=== PATIENT | female | born 1955 | race African-American/Black ===

== ENCOUNTER → 2016-11-26 | Outpatient (CLI) | payer OTHER ==
[2015-11-04 06:33] VITALS: BP 114/69
[~2016-11-26] MED LIST: MULT1CAP15
[2016-11-26 07:39] LABS: BASO # 0.1 x10^3/uL (0.0-0.2); BASO % 1 % (0-3); EOS % 1 % (0-3); HEMATOCRIT 41.5 % (36.0-47.0); HEMOGLOBIN 13.7 g/dL (12.0-15.5); LYMPH % 51 % (24-48); MEAN CORPUSCULAR HEMOGLOBIN 30 pg (25-35); MEAN CORPUSCULAR HGB CONC 33 g/dL (31-37); MEAN CORPUSCULAR VOLUME 91 fL (79-100); MONO % 8 % (0-9); NEUT % 39 % (31-73); PLATELET COUNT 493 x10^3/uL (140-400); RED BLOOD COUNT 4.56 x10^6/uL (3.50-5.40); RED CELL DISTRIBUTION WIDTH 14.3 % (11.5-14.5)
[2016-11-26 07:59] LABS: ALBUMIN 3.7 g/dL (3.4-5.0); CALCIUM 9.5 mg/dL (8.5-10.1); CHOLESTEROL/HDL RATIO 2.4; CREATININE 0.7 mg/dL (0.6-1.0); GFR 103.3; POTASSIUM 3.7 mmol/L (3.5-5.1); TOTAL BILIRUBIN 0.2 mg/dL (0.2-1.0); TOTAL PROTEIN 7.5 g/dL (6.4-8.2)
--- NOTE | 2016-11-26 09:25 | RAD ---
Indication chronic neck pain. AP oblique lateral and odontoid views were obtained. The patient is not optimally positioned on the lateral view. There is slight wedging of C5 and C6 likely incidental. Significant disc space narrowing is not seen. There is no significant bony foraminal encroachment seen on the oblique views. No acute finding is apparent. The prevertebral soft tissues appear unremarkable. IMPRESSION: Suboptimal lateral view. No significant finding seen on plain films of the cervical spine
== END | disposition home or self-care (01) ==
LOC: LAB 07:04
PROVIDERS: ATTEND Family Medicine
DX: M25.50 Pain in unspecified joint (principal); R53.83 Other fatigue
CPT/HCPCS: 36415; 72050; 80053; 80061; 82306; 82607; 84443; 84550; 85027

== ENCOUNTER 2017-03-26 10:21 | Emergency (ER) | payer OTHER ==
[~2017-03-26] VITALS: Ht 149.9 cm; Wt 59.0 kg
[2017-03-26] MEDS ORDERED: HYDROcodone/APAP 5/325MG 1 TAB TABLET PO ONE (11:00)
--- NOTE | 2017-03-26 11:21 | RAD ---
CT head without contrast History: Headache for 2 weeks. Comparison: None. Procedure: Axial images are obtained of the head from the skull base through the vertex without IV contrast. Findings: The ventricles and sulci are normal for the patient's age. No mass-effect, intracranial mass, midline shift, hemorrhage or obvious acute infarction is identified. Basilar cisterns are patent. Bone windows demonstrate no significant calvarial abnormality. The visualized paranasal sinuses appear clear. Impression: 1. No acute intracranial process. PQRS Compliance Statement: One or more of the following individualized dose reduction techniques were utilized for this examination: 1. Automated exposure control 2. Adjustment of the mA and/or kV according to patient size 3. Use of iterative reconstruction technique
[2017-03-26 11:39] VITALS: BP 124/68
[2017-03-26] MEDS ORDERED: TRAM50TA PO (11:59)
[2017-03-26] MEDS ORDERED: AMOX1TAB61 PO ×2 (11:59→12:01)
--- NOTE | 2017-03-26 11:59 | PHYS DOC ---
Past Medical History Past Medical History: Bronchitis Past Surgical History: Cholecystectomy, , Tubal ligation Alcohol Use: Occasionally Drug Use: None Adult General Chief Complaint Chief Complaint: HEADACHE HPI HPI Patient is a 61 year old female presents to the ED complaining of headache 2 days. Describes the pain as sharp, rates the pain as 8/10. Associated symptoms include nasal congestion. Improves with Motrin at home. Denies worse headache of life, vision changes, nausea/vomiting, trauma, chest pain, shortness of breath, neck pain or photophobia. Review of Systems Review of Systems Constitutional: Denies fever or chills [] Eyes: Denies change in visual acuity, redness, or eye pain [] HENT: Denies nasal congestion or sore throat [] Respiratory: Denies cough or shortness of breath [] Cardiovascular: No additional information not addressed in HPI [] GI: Denies abdominal pain, nausea, vomiting, bloody stools or diarrhea [] : Denies dysuria or hematuria [] Musculoskeletal: Denies back pain or joint pain [] Integument: Denies rash or skin lesions [] Neurologic: Complains of headache. Denies focal weakness or sensory changes [] Endocrine: Denies polyuria or polydipsia [] Current Medications Current Medications Current Medications Medications (Trade) Dose Ordered Sig/Sourav Start Time Stop Time Status Last Admin Dose Admin Acetaminophen/ Hydrocodone Bitart (Lortab 5/325) 1 tab 1X ONCE 03/26/17 11:00 03/26/17 11:01 DC 03/26/17 11:00 1 TAB Allergies Allergies Allergies Coded Allergies Type Severity Reaction Last Updated Verified No Known Drug Allergies 05/30/13 No Physical Exam Physical Exam Constitutional: Well developed, well nourished, no acute distress, non-toxic appearance. [] HENT: Normocephalic, atraumatic, bilateral external ears normal, oropharynx moist, no oral exudates, nose normal. MILD LEFT FRONTAL SINUS TENDERNESS. PRESSURE INCREASES WITH HEAD BENT FORWARD. [] Eyes: PERRLA, EOMI, conjunctiva normal, no discharge. [] Neck: Normal range of motion, no tenderness, supple, no stridor. [] Cardiovascular:Heart rate regular rhythm, no murmur [] Lungs & Thorax: Bilateral breath sounds clear to auscultation [] Abdomen: Bowel sounds normal, soft, no tenderness, no masses, no pulsatile masses. [] Skin: Warm, dry, no erythema, no rash. [] Back: No tenderness, no CVA tenderness. [] Extremities: No tenderness, no cyanosis, no clubbing, ROM intact, no edema. [] Neurologic: Alert and oriented X 3, normal motor function, normal sensory function, no focal deficits noted. [] Psychologic: Affect normal, judgement normal, mood normal. [] Current Patient Data Vital Signs Vital Signs Date Time Temp Pulse Resp B/P (MAP) Pulse Ox O2 Delivery O2 Flow Rate FiO2 03/26/17 11:39 67 18 124/68 (86) 97 Room Air 03/26/17 10:40 97.6 97.6 EKG EKG [] Radiology/Procedures Radiology/Procedures PROCEDURE: CT HEAD WO CONTRAST CT head without contrast History: Headache for 2 weeks. Comparison: None. Procedure: Axial images are obtained of the head from the skull base through the vertex without IV contrast. Findings: The ventricles and sulci are normal for the patient's age. No mass-effect, intracranial mass, midline shift, hemorrhage or obvious acute infarction is identified. Basilar cisterns are patent. Bone windows demonstrate no significant calvarial abnormality. The visualized paranasal sinuses appear clear. Impression: 1. No acute intracranial process. PQRS Compliance Statement: One or more of the following individualized dose reduction techniques were utilized for this examination: 1. Automated exposure control 2. Adjustment of the mA and/or kV according to patient size 3. Use of iterative reconstruction technique [] Course & Med Decision Making Course & Med Decision Making Pertinent Labs and Imaging studies reviewed. (See chart for details) []Discussed imaging findings with patient. Patient's headache resolved. No focal neural deficits. Left frontal maxillary sinus tenderness. WILL treat for sinusitis. Patient prescribed tramadol and Augmentin. Discussed follow-up with PCP in one to 2 days. Provided contact information/education. Discussed reasons to return to the ED. Patient understands and agrees with plan. Dragon Disclaimer Dragon Disclaimer This electronic medical record was generated, in whole or in part, using a voice recognition dictation system. Departure Departure Impression: Primary Impression: Sinusitis Additional Impression: Headache Disposition: 01 HOME, SELF-CARE Condition: IMPROVED Referrals: Elizabeth BUCHANAN MD (PCP) Patient Instructions: Sinusitis Scripts Amoxicillin/Potassium Clav (AUGMENTIN 875-125 TABLET) 1 Each Tablet 1 TAB PO BID, #28 TAB Prov: LEO MESSINA 03/26/17 Tramadol Hcl (TRAMADOL HCL) 50 Mg Tablet 1 TAB PO BID, #10 TAB Prov: LEO MESSINA 03/26/17 Problem Qualifiers LEO MESSINA Mar 26, 2017 11:59
== END 2017-03-26 12:12 | disposition home or self-care (01) ==
LOC: ER 10:21
DX: J32.0 Chronic maxillary sinusitis (principal); J32.1 Chronic frontal sinusitis
CPT/HCPCS: 70450; 99284-25

== ENCOUNTER 2018-02-17 07:11 | Emergency (ER) | payer OTHER ==
[~2018-02-17] VITALS: Ht 149.9 cm; Wt 49.9 kg
[~2018-02-17 07:11] MED LIST changes: +AMOX1TAB61 PO; +TRAM50TA PO
--- NOTE | 2018-02-17 08:01 | EKG ---
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
[2018-02-17] MEDS: IPRATRPIUM/ALBUTEROL 0.5/2.5MG 3 ML NEBU. NEB ONE (08:05)
--- NOTE | 2018-02-17 08:53 | RAD ---
AP and Lateral Views of the Chest 02/17/2018 8:22 AM Indication: Persistent cough X4 days. Comparison: Chest radiograph February 17, 2014. Findings: There is no focal consolidation or infiltrate identified. Heart size is normal. Calcified lymph node in the right paratracheal region noted. There is no evidence of pneumothorax or pleural effusion. No acute osseous abnormalities are identified. Impression: No evidence of acute cardiopulmonary process. Electronically signed by: Donald Spain MD (02/17/2018 8:50 AM) [id number]
[2018-02-17 09:03] LABS: BASO # 0.1 x10^3/uL (0.0-0.2); BASO % 1 % (0-3); EOS # 0.3 x10^3/uL (0.0-0.7); EOS % 4 % (0-3); HEMATOCRIT 41.4 % (36.0-47.0); HEMOGLOBIN 13.7 g/dL (12.0-15.5); LYMPH # 2.7 x10^3/uL (1.0-4.8); LYMPH % 44 % (24-48); MEAN CORPUSCULAR HEMOGLOBIN 29 pg (25-35); MEAN CORPUSCULAR HGB CONC 33 g/dL (31-37); MEAN CORPUSCULAR VOLUME 88 fL (79-100); MONO # 0.6 x10^3/uL (0.0-1.1); MONO % 9 % (0-9); NEUT # 2.5 x10^3uL (1.8-7.7); NEUT % 41 % (31-73); PLATELET COUNT 466 x10^3/uL (140-400); RED BLOOD COUNT 4.72 x10^6/uL (3.50-5.40); WHITE BLOOD COUNT 6.1 x10^3/uL (4.0-11.0)
[2018-02-17 09:11] LABS: CALCIUM 9.2 mg/dL (8.5-10.1); CREATININE 0.6 mg/dL (0.6-1.0); POTASSIUM 3.9 mmol/L (3.5-5.1)
[2018-02-17 09:18] LABS: ALBUMIN 3.6 g/dL (3.4-5.0); TOTAL BILIRUBIN 0.3 mg/dL (0.2-1.0); TOTAL PROTEIN 7.1 g/dL (6.4-8.2)
[2018-02-17 11:07] VITALS: BP 133/68
--- NOTE | 2018-02-17 16:11 | PHYS DOC ---
Past Medical History Past Medical History: Bronchitis Past Surgical History: Cholecystectomy, , Tubal ligation Additional Information: Pack a day Alcohol Use: Occasionally Drug Use: None Adult General Chief Complaint Chief Complaint: CHEST WALL PAIN HPI HPI Patient is a 62-year-old female who presents with complaint of productive cough small amount of sputum for the last few days. She indicates that she has been having some discomfort in her chest as well as her mid thoracic area associated with the cough. She rates that pain is 3 out of 10. She denies any nausea, vomiting or diaphoresis. She indicates that her symptoms are worsened with coughing and with exertion. Patient also denies fever. She states that nothing is improving her symptoms. Review of Systems Review of Systems Constitutional: Denies fever or chills [] Respiratory: Complains of cough and mild exertional shortness of breath[] Cardiovascular: Complains of right-sided chest discomfort[] GI: Denies abdominal pain, nausea, vomiting or diarrhea [] Musculoskeletal: Complains of midthoracic back pain[] Integument: Denies rash or skin lesions [] All other systems were reviewed and found to be within normal limits, except as documented in this note. Current Medications Current Medications Current Medications Medications (Trade) Dose Ordered Sig/Sourav Start Time Stop Time Status Last Admin Dose Admin Albuterol/ Ipratropium (Duoneb) 3 ml 1X ONCE 02/17/18 08:15 02/17/18 08:16 DC 02/17/18 08:05 3 ML Allergies Allergies Allergies Coded Allergies Type Severity Reaction Last Updated Verified No Known Drug Allergies 05/30/13 No Physical Exam Physical Exam Constitutional: Well developed, well nourished, no acute distress, non-toxic appearance. [] HENT: Normocephalic, atraumatic, bilateral external ears normal, oropharynx moist, no oral exudates, nose normal. [] Eyes: PERRLA, EOMI, conjunctiva normal, no discharge. [] Neck: Normal range of motion, no tenderness, supple, no stridor. [] Cardiovascular:Heart rate regular rhythm [] Lungs & Thorax: There are fine rhonchi noted in the lung bases bilaterally[] Abdomen: Bowel sounds normal, soft, no tenderness. [] Skin: Warm, dry, no erythema, no rash. [] Extremities: No tenderness, no cyanosis, no clubbing, ROM intact, no edema. [] Neurologic: Alert and oriented X 3, normal motor function, normal sensory function, no focal deficits noted. [] Current Patient Data Vital Signs Vital Signs Date Time Temp Pulse Resp B/P (MAP) Pulse Ox O2 Delivery O2 Flow Rate FiO2 02/17/18 11:07 65 20 133/68 (89) 99 Room Air 02/17/18 07:20 97.9 97.9 Lab Values Laboratory Tests Test 02/17/18 08:45 White Blood Count 6.1 x10^3/uL (4.0-11.0) Red Blood Count 4.72 x10^6/uL (3.50-5.40) Hemoglobin 13.7 g/dL (12.0-15.5) Hematocrit 41.4 % (36.0-47.0) Mean Corpuscular Volume 88 fL (79-100) Mean Corpuscular Hemoglobin 29 pg (25-35) Mean Corpuscular Hemoglobin Concent 33 g/dL (31-37) Red Cell Distribution Width 14.0 % (11.5-14.5) Platelet Count 466 x10^3/uL (140-400) H Neutrophils (%) (Auto) 41 % (31-73) Lymphocytes (%) (Auto) 44 % (24-48) Monocytes (%) (Auto) 9 % (0-9) Eosinophils (%) (Auto) 4 % (0-3) H Basophils (%) (Auto) 1 % (0-3) Neutrophils # (Auto) 2.5 x10^3uL (1.8-7.7) Lymphocytes # (Auto) 2.7 x10^3/uL (1.0-4.8) Monocytes # (Auto) 0.6 x10^3/uL (0.0-1.1) Eosinophils # (Auto) 0.3 x10^3/uL (0.0-0.7) Basophils # (Auto) 0.1 x10^3/uL (0.0-0.2) D-Dimer (Antonella) 0.39 ug/mlFEU (0.00-0.50) Sodium Level 144 mmol/L (136-145) Potassium Level 3.9 mmol/L (3.5-5.1) Chloride Level 107 mmol/L (98-107) Carbon Dioxide Level 30 mmol/L (21-32) Anion Gap 7 (6-14) Blood Urea Nitrogen 7 mg/dL (7-20) Creatinine 0.6 mg/dL (0.6-1.0) Estimated GFR (Cockcroft-Gault) 123.0 BUN/Creatinine Ratio 12 (6-20) Glucose Level 106 mg/dL (70-99) H Calcium Level 9.2 mg/dL (8.5-10.1) Total Bilirubin 0.3 mg/dL (0.2-1.0) Aspartate Amino Transferase (AST) 16 U/L (15-37) Alanine Aminotransferase (ALT) 28 U/L (14-59) Alkaline Phosphatase 129 U/L (46-116) H Troponin I Quantitative < 0.017 ng/mL (0.000-0.055) UA-Oqs-P-Type Natriuretic Peptide 119 pg/mL (0-124) Total Protein 7.1 g/dL (6.4-8.2) Albumin 3.6 g/dL (3.4-5.0) Albumin/Globulin Ratio 1.0 (1.0-1.7) Laboratory Tests 02/17/18 08:45 Laboratory Tests 02/17/18 08:45 EKG EKG [] Interpretation Time: EKG demonstrates normal sinus rhythm with rate of 63. No ST segment abnormalities are noted. Radiology/Procedures Radiology/Procedures [] Impressions: Chest x-ray demonstrates no acute process. Course & Med Decision Making Course & Med Decision Making Pertinent Labs and Imaging studies reviewed. (See chart for details) [] Dragon Disclaimer Dragon Disclaimer This electronic medical record was generated, in whole or in part, using a voice recognition dictation system. Departure Departure Impression: Primary Impression: Acute bronchitis Disposition: 01 HOME, SELF-CARE Condition: STABLE Referrals: Elizabeth BUCHANAN MD (PCP) Patient Instructions: Acute Bronchitis Additional Instructions: Take prescribed medications as directed and follow-up with your primary care provider in the next few days. Problem Qualifiers Primary Impression: Acute bronchitis Bronchitis organism: unspecified organism Qualified Codes: J20.9 - Acute bronchitis, unspecified SHELLEY PRESTON Jr. DO Feb 17, 2018 16:11
== END 2018-02-17 11:20 | disposition home or self-care (01) ==
LOC: ER 07:11
DX: J20.9 Acute bronchitis, unspecified (principal); M54.6 Pain in thoracic spine; F17.200 Nicotine dependence, unspecified, uncomplicated; Z90.49 Acquired absence of other specified parts of digestive tract; Z98.890 Other specified postprocedural states; Z90.89 Acquired absence of other organs
CPT/HCPCS: 36415; 71046; 80053; 83880; 84484; 85025; 85379; 93005; 94640; 99285; J7620

== ENCOUNTER → 2018-04-15 | Outpatient (CLI) | payer OTHER ==
--- NOTE | 2018-04-15 07:52 | RAD ---
CHEST PA LATERAL Clinical indications: BRONCHITIS COMPARISON: February 17, 2018. Findings: No acute lung infiltrate or pleural effusion or pulmonary edema or lung mass or pneumothorax is seen. The heart size, pulmonary vasculature, mediastinum and both teresa are unremarkable. Small compression deformity of T12 is unchanged. Impression: No acute radiographic abnormality is seen. Electronically signed by: Evans Bhatia MD (04/15/2018 7:49 AM) [facility]
--- NOTE | 2018-04-15 15:39 | RAD ---
DATE: April 15, 2015 EXAM: MAMMO ESTRELLA SCREENING BILATERAL HISTORY: Screening study. COMPARISON: None. Baseline examination. This study was interpreted with the benefit of Computerized Aided Detection (CAD). 2-D digital mammographic views of both breasts were performed in the CC and MLO projections. 3-D digital tomosynthesis images of both breasts were performed in the CC and MLO projections and reviewed on a computer workstation. FINDINGS: Breast Density: HETERO The breast parenchyma is heterogenously dense, which could reduce sensitivity of mammography. Breast parenchyma level C.. There are no dominant suspicious masses, suspicious microcalcifications or evidence of architectural distortion. IMPRESSION: No mammographic indicators for malignancy. BI-RADS CATEGORY: 1 NEGATIVE RECOMMENDED FOLLOW-UP: 12M 12 MONTH FOLLOW-UP PQRS compliance statement: Patient information was entered into a reminder system with a target due date April 16, 2019 for the next mammogram. Mammography is a sensitive method for finding small breast cancers, but it does not detect them all and is not a substitute for careful clinical examination. A negative mammogram does not negate a clinically suspicious finding and should not result in delay in biopsying a clinically suspicious abnormality. "Our facility is accredited by the [employer] Mammography Program." The patient's breast density may affect the ability of mammography to detect breast cancer. There are 4 categories of breast density, A, B, C and D. Breast density A means that most of the breast tissue is replaced with adipose tissue and therefore is not dense. Breast density B means that the breast tissue is mildly dense and scattered. Breast density C means that the breast tissue is heterogeneously dense. Breast density D means that the breast tissue is very dense. Breast densities especially C and D may decrease the sensitivity of mammography to detect breast cancer. Therefore, the patient may benefit from 3-D breast mammography (3D breast tomography) as a part of their screening mammogram. Insurance may or may not pay for this additional imaging. The patient's breast density based on today's mammogram is category C.
== END | disposition home or self-care (01) ==
LOC: RAD 07:13
PROVIDERS: ATTEND Family Medicine
DX: Z12.31 Encounter for screening mammogram for malignant neoplasm of breast (principal); J40 Bronchitis, not specified as acute or chronic; F17.200 Nicotine dependence, unspecified, uncomplicated
CPT/HCPCS: 71046; 77063; 77067

== ENCOUNTER → 2018-05-04 | Outpatient (CLI) | payer OTHER ==
--- NOTE | 2018-05-04 11:14 | KCIC ---
Bone mineral density study dated 05/04/2018. Indication: Postmenopausal screening. Findings: Lower lumbar spine: BMD (g/cm2): Total L1-L4.......... 0.810. . T-Score: Total L1-L4.................... -2.2. Z-Score: Total L1-L4 ................... -1.4. Left Hip: BMD (g/cm2): Total .......... 0.632. . T-Score: Total .................... -2.5. Z-Score: Total ................... -1.7. World Health Organization criteria for BMD interpretation classify patients as Normal (T-score at or above -1.0), Osteopenic (T-score between -1.0 and -2.5), or Osteoporotic (T-score at or below -2.5). Impression: 1. Bone mineral density values of the left femur correlate with osteoporosis. 2. Density values of the lumbar spine are within the range of osteopenia. Electronically signed by: Jerrod Fitch MD (05/04/2018 11:10 AM) [facility]
== END | disposition home or self-care (01) ==
LOC: KCIC DEXA 10:31
PROVIDERS: ATTEND Family Medicine
DX: Z13.820 Encounter for screening for osteoporosis (principal); Z78.0 Asymptomatic menopausal state
CPT/HCPCS: 77080

== ENCOUNTER 2019-02-22 17:31 | Emergency (ER) | payer OTHER ==
[~2019-02-22] VITALS: Ht 149.9 cm; Wt 59.0 kg
[~2019-02-22 17:31] MED LIST changes: +ALEN70TA3 PO; +CALC1TAB75 PO; +CEPH-264 PO; +Pantoprazole PO
[2019-02-22] MEDS ORDERED: IV NORMAL SALINE 1000ML BAG 1,000 ML IV ONE (18:00)
[2019-02-22] MEDS ORDERED: ONDANSETRON PF 4 MG/2 ML VIAL. IV ONE (18:00)
[2019-02-22] MEDS ORDERED: fentaNYL PF VIAL 100 MCG/2 ML VIAL IV ONE (18:00)
[2019-02-22 18:27] LABS: BASO % 0 % (0-3); EOS # 0.2 x10^3/uL (0.0-0.7); EOS % 2 % (0-3); HEMATOCRIT 42.2 % (36.0-47.0); HEMOGLOBIN 14.3 g/dL (12.0-15.5); LYMPH # 4.2 x10^3/uL (1.0-4.8); LYMPH % 46 % (24-48); MEAN CORPUSCULAR HEMOGLOBIN 30 pg (25-35); MEAN CORPUSCULAR HGB CONC 34 g/dL (31-37); MEAN CORPUSCULAR VOLUME 90 fL (79-100); MONO # 0.6 x10^3/uL (0.0-1.1); MONO % 7 % (0-9); NEUT # 4.2 x10^3/uL (1.8-7.7); NEUT % 46 % (31-73); PLATELET COUNT 486 x10^3/uL (140-400); RED BLOOD COUNT 4.71 x10^6/uL (3.50-5.40); RED CELL DISTRIBUTION WIDTH 14.4 % (11.5-14.5); WHITE BLOOD COUNT 9.3 x10^3/uL (4.0-11.0)
--- NOTE | 2019-02-22 18:33 | PHYS DOC ---
Past Medical History Past Medical History: Pancreatitis Additional Past Medical Histor: H. Pylori, gastritis, Vitamin D deficiency Past Surgical History: Cholecystectomy, , Tubal ligation Smokin Pack Per Day Additional Information: smokes 1 pack/day Alcohol Use: Rarely Drug Use: None Adult General Chief Complaint Chief Complaint: ABDOMINAL PAIN HPI HPI Patient is a 63 year old AA female who presents to the ER with complaints of epigastric abdominal pain for the last 2 weeks. Pt states that the pain increases when she takes a deep breath today. She reports that the pain began after eating fried foods. She currently rates the pain a 4/10 on the pain scale, the pain increases to 10/10 if she takes a deep breath, she denies any allev iating factors. ROS PT denies any fever, cough, shortness of breath, chest pain, palpitations, [place], vomiting, or diarrhea. She denies any back pain, dysuria, hematuria, or increased urinary frequency. She denies any weakness or headache. All other ROS is neg unless otherwise noted in HPI. Review of Systems Review of Systems See Above Current Medications Current Medications Current Medications Medications (Trade) Dose Ordered Sig/Sourav Start Time Stop Time Status Last Admin Dose Admin Fentanyl Citrate (Fentanyl 2ml Vial) 50 mcg 1X ONCE 02/22/19 18:00 02/22/19 18:02 DC 02/22/19 18:56 50 MCG Multi-Ingredient Mouthwash/Gargle (Gi Cocktail) 20 ml 1X ONCE 02/22/19 19:45 02/22/19 19:46 DC 02/22/19 19:54 20 ML Ondansetron HCl (Zofran) 4 mg 1X ONCE 02/22/19 18:00 02/22/19 18:02 DC 02/22/19 18:56 4 MG Sodium Chloride 1,000 ml @ 1,000 mls/hr 1X ONCE 02/22/19 18:00 02/22/19 18:59 DC 02/22/19 18:56 1,000 MLS/HR Allergies Allergies Allergies Coded Allergies Type Severity Reaction Last Updated Verified No Known Drug Allergies 05/30/13 No Physical Exam Physical Exam See Above Constitutional: Well developed, well nourished, no acute distress, non-toxic appearance. [] HENT: Normocephalic, atraumatic, bilateral external ears normal, oropharynx moist, no oral exudates, nose normal. [] Eyes: PERRLA, EOMI, conjunctiva normal, no discharge. [] Neck: Normal range of motion, no stridor. [] Cardiovascular:Heart rate regular rhythm, no murmur [] Lungs & Thorax: Bilateral breath sounds clear to auscultation, no retractions [] Abdomen: Bowel sounds normal, soft, epigastric tenderness to palpation, no rebound tenderness, no guarding, no masses, no pulsatile masses. [] Skin: Warm, dry, no erythema, no rash. [] Back: No CVA tenderness. [] Extremities: No cyanosis, no clubbing, ROM intact, no edema. [] Neurologic: Alert and oriented X 3, no focal deficits noted. [] Psychologic: Affect normal, judgement normal, mood normal. [] Current Patient Data Vital Signs Vital Signs Date Time Temp Pulse Resp B/P (MAP) Pulse Ox O2 Delivery O2 Flow Rate FiO2 02/22/19 21:00 50 20 149/66 (93) 98 Room Air 02/22/19 17:58 97.9 97.9 See Above Lab Values Laboratory Tests Test 02/22/19 17:45 02/22/19 18:13 Urine Collection Type Unknown Urine Color Yellow Urine Clarity Clear Urine pH 6.5 Urine Specific [place] 1.020 Urine Protein Negative mg/dL (NEG-TRACE) Urine Glucose (UA) Negative mg/dL (NEG) Urine Ketones (Stick) Negative mg/dL (NEG) Urine Blood Negative (NEG) Urine Nitrite Negative (NEG) Urine Bilirubin Negative (NEG) Urine Urobilinogen Dipstick 0.2 mg/dL (0.2 mg/dL) Urine Leukocyte Esterase Moderate (NEG) Urine RBC 0 /HPF (0-2) Urine WBC 5-10 /HPF (0-4) Urine Squamous Epithelial Cells Many /LPF Urine Bacteria Many /HPF (0-FEW) Urine Mucus Mod /LPF White Blood Count 9.3 x10^3/uL (4.0-11.0) Red Blood Count 4.71 x10^6/uL (3.50-5.40) Hemoglobin 14.3 g/dL (12.0-15.5) Hematocrit 42.2 % (36.0-47.0) Mean Corpuscular Volume 90 fL (79-100) Mean Corpuscular Hemoglobin 30 pg (25-35) Mean Corpuscular Hemoglobin Concent 34 g/dL (31-37) Red Cell Distribution Width 14.4 % (11.5-14.5) Platelet Count 486 x10^3/uL (140-400) H Neutrophils (%) (Auto) 46 % (31-73) Lymphocytes (%) (Auto) 46 % (24-48) Monocytes (%) (Auto) 7 % (0-9) Eosinophils (%) (Auto) 2 % (0-3) Basophils (%) (Auto) 0 % (0-3) Neutrophils # (Auto) 4.2 x10^3/uL (1.8-7.7) Lymphocytes # (Auto) 4.2 x10^3/uL (1.0-4.8) Monocytes # (Auto) 0.6 x10^3/uL (0.0-1.1) Eosinophils # (Auto) 0.2 x10^3/uL (0.0-0.7) Basophils # (Auto) 0.0 x10^3/uL (0.0-0.2) Sodium Level 144 mmol/L (136-145) Potassium Level 4.1 mmol/L (3.5-5.1) Chloride Level 104 mmol/L (98-107) Carbon Dioxide Level 30 mmol/L (21-32) Anion Gap 10 (6-14) Blood Urea Nitrogen 10 mg/dL (7-20) Creatinine 0.8 mg/dL (0.6-1.0) Estimated GFR (Cockcroft-Gault) 87.9 BUN/Creatinine Ratio 13 (6-20) Glucose Level 111 mg/dL (70-99) H Calcium Level 9.8 mg/dL (8.5-10.1) Magnesium Level 2.1 mg/dL (1.8-2.4) Total Bilirubin 0.2 mg/dL (0.2-1.0) Aspartate Amino Transferase (AST) 15 U/L (15-37) Alanine Aminotransferase (ALT) 21 U/L (14-59) Alkaline Phosphatase 118 U/L (46-116) H Creatine Kinase 79 U/L (26-192) Creatine Kinase MB (Mass) 0.5 ng/mL (0.0-3.6) Creatine Kinase MB Relative Index 0.6 % (0-4) Troponin I Quantitative < 0.017 ng/mL (0.000-0.055) Total Protein 7.6 g/dL (6.4-8.2) Albumin 4.0 g/dL (3.4-5.0) Albumin/Globulin Ratio 1.1 (1.0-1.7) Lipase 412 U/L (73-393) H Laboratory Tests 02/22/19 18:13 Laboratory Tests 02/22/19 18:13 EKG EKG 1758- SR rate 54, no STEMI read by Dr. Munson[] Course & Med Decision Making Course & Med Decision Making Pertinent Labs and Imaging studies reviewed. (See chart for details) dx: gastritis CBC is unremarkable, CMP reveals glucose of 111, alkaline phosphatase of 118, lipase is 412, troponin is negative less than 0.017, the UA is likely contaminated, as patient is asymptomatic. No imaging was performed as patient's only complaint was epigastric abdominal pain improved after medications, patient had already had her gallbladder removed. PT was given 1L NS, 4 mg zofran IV, and 50 mcg of fentanyl in the ER, reports some relief of pain. A GI cocktail was given to pt. Pt reports feeling better after this medication. States she would like to go home. Prescription was written for omeprazole 20 mg twice a day. 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 She is encouraged to continue not drinking alcoholic beverages. Dragon Disclaimer Dragon Disclaimer This electronic medical record was generated, in whole or in part, using a voice recognition dictation system. Departure Departure Impression: Primary Impression: Gastritis Disposition: 01 HOME, SELF-CARE Condition: STABLE Referrals: Elizabeth PALACIOS MD (PCP) SAMINA LEON MD Patient Instructions: Gastritis, Adult, [id number] Additional Instructions: Fill the prescription and use as directed. Follow up with Dr. Palacios or Dr. Leon for further treatment of your gastritis, return to the ER if symptoms worsen. Scripts Omeprazole (OMEPRAZOLE) 20 Mg Capsule. 1 CAP PO BID for 30 Days, #60 CAP 0 Refills Prov: RUPERTO OCASIO Taryn MCKINNON 02/22/19 Problem Qualifiers Primary Impression: Gastritis Gastritis type: unspecified gastritis Chronicity: unspecified Gastritis bleeding: without bleeding Qualified Codes: K29.70 - Gastritis, unspecified, without bleeding RUPERTO OCASIO DOOR PERSON Feb 22, 2019 18:33
[2019-02-22 18:47] LABS: CALCIUM 9.8 mg/dL (8.5-10.1); CREATININE 0.8 mg/dL (0.6-1.0); GFR 87.9; POTASSIUM 4.1 mmol/L (3.5-5.1)
[2019-02-22 18:53] LABS: ALBUMIN/GLOBULIN RATIO 1.1 (1.0-1.7); MAGNESIUM 2.1 mg/dL (1.8-2.4); TOTAL BILIRUBIN 0.2 mg/dL (0.2-1.0); TOTAL PROTEIN 7.6 g/dL (6.4-8.2)
[2019-02-22 19:01] LABS: BILIRUBIN,URINE NEGATIVE (NEG); CLARITY,URINE CLEAR; COLOR,URINE YELLOW; NITRITE,URINE NEGATIVE (NEG); PH,URINE 6.5; PROTEIN,URINE NEGATIVE (NEG-TRACE); UROBILINOGEN,URINE 0.2 mg/dL (0.2 mg/dL)
[2019-02-22 19:06] LABS: BACTERIA,URINE MANY /HPF (0-FEW); RBC,URINE 0 /HPF (0-2); SQUAMOUS EPITHELIAL CELL,UR MANY /LPF
[2019-02-22] MEDS ORDERED: LIDO:MAALOX 1:1 20 ML SINGLE DOSE. SWSW ONE (19:45)
[2019-02-22 21:00] VITALS: BP 149/66
[2019-02-22] MEDS ORDERED: OMEP20CA10 PO (21:05)
--- NOTE | 2019-02-23 05:29 | EKG ---
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
[2019-03-01] MEDS ORDERED: LACT1CAP19 PO (11:56)
[2019-03-01] MEDS ORDERED: POLY17PO28 PO (11:56)
[2019-03-01] MEDS ORDERED: AMOX1TAB61 PO (11:56)
[2019-03-01] MEDS ORDERED: OXYC1TAB15 PO (11:56)
== END 2019-02-22 21:13 | disposition home or self-care (01) ==
LOC: ER 17:31
DX: K29.70 Gastritis, unspecified, without bleeding (principal); F17.200 Nicotine dependence, unspecified, uncomplicated; Z90.49 Acquired absence of other specified parts of digestive tract; Z98.890 Other specified postprocedural states; Z98.51 Tubal ligation status
CPT/HCPCS: 36415; 80053; 81001; 82553; 83690; 83735; 84484; 85025; 87086; 93005; 96361; 96374; 96375; 99285; J2405; J3010; J7030

== ENCOUNTER 2019-02-26 07:07 | Inpatient (IN) | payer OTHER ==
[~2019-02-26] VITALS: Ht 149.9 cm; Wt 59.0 kg
[~2019-02-26 07:07] MED LIST changes: +OMEP20CA10 PO
[2019-02-26 07:39] LABS: BILIRUBIN,URINE NEGATIVE (NEG); CLARITY,URINE CLOUDY; COLOR,URINE YELLOW; NITRITE,URINE NEGATIVE (NEG); PROTEIN,URINE NEGATIVE (NEG-TRACE); UROBILINOGEN,URINE 0.2 mg/dL (0.2 mg/dL)
[2019-02-26 07:50] LABS: BACTERIA,URINE MANY /HPF (0-FEW); WBC,URINE TNTC /HPF (0-4)
[2019-02-26 08:01] LABS: BASO % 1 % (0-3); EOS # 0.1 x10^3/uL (0.0-0.7); EOS % 2 % (0-3); HEMATOCRIT 40.9 % (36.0-47.0); LYMPH # 3.2 x10^3/uL (1.0-4.8); LYMPH % 47 % (24-48); MEAN CORPUSCULAR HEMOGLOBIN 30 pg (25-35); MEAN CORPUSCULAR HGB CONC 34 g/dL (31-37); MEAN CORPUSCULAR VOLUME 89 fL (79-100); MONO # 0.4 x10^3/uL (0.0-1.1); MONO % 6 % (0-9); NEUT # 3.1 x10^3/uL (1.8-7.7); NEUT % 45 % (31-73); PLATELET COUNT 514 x10^3/uL (140-400); RED BLOOD COUNT 4.61 x10^6/uL (3.50-5.40); RED CELL DISTRIBUTION WIDTH 14.1 % (11.5-14.5); WHITE BLOOD COUNT 6.9 x10^3/uL (4.0-11.0)
[2019-02-26] MEDS ORDERED: LIDO:MAALOX 1:1 20 ML SINGLE DOSE. SWSW ONE (08:15)
[2019-02-26] MEDS ORDERED: cefTRIAXone IV Push 1 GM VIAL. IVP ONE (08:15)
--- NOTE | 2019-02-26 08:16 | PHYS DOC ---
Past Medical History Past Medical History: Pancreatitis Additional Past Medical Histor: H. Pylori, gastritis, Vitamin D deficiency Past Surgical History: Cholecystectomy, , Tubal ligation Alcohol Use: Rarely Drug Use: None Adult General Chief Complaint Chief Complaint: ABDOMINAL PAIN HPI HPI Patient is a 63 year old female presented ER today for evaluation of epigastric this abdominal pain that been going on for about 3 weeks. Patient was seen here on February 22 for the same problem, she was diagnosed with gastritis, she was discharged home with prescription for prilosec 20 mg twice a day. She continues to have abdominal pain despite taking her medication. She denies any fever, no diarrhea, no chest pain, no trouble breathing. She has history of pancreatitis, acid reflux. Patient has history of cholecystectomy in the past. Patient drinks socially. Review of Systems Review of Systems Constitutional: Denies fever or chills [] Eyes: Denies change in visual acuity, redness, or eye pain [] HENT: Denies nasal congestion or sore throat [] Respiratory: Denies cough or shortness of breath [] Cardiovascular: No additional information not addressed in HPI [] GI: POSITIVE FOR abdominal pain, nausea, NO vomiting, bloody stools or diarrhea [] : Denies dysuria or hematuria [] Musculoskeletal: Denies back pain or joint pain [] Integument: Denies rash or skin lesions [] Neurologic: Denies headache, focal weakness or sensory changes [] Endocrine: Denies polyuria or polydipsia [] All other systems were reviewed and found to be within normal limits, except as documented in this note. Current Medications Current Medications Current Medications Medications (Trade) Dose Ordered Sig/Sourav Start Time Stop Time Status Last Admin Dose Admin Ceftriaxone Sodium (Rocephin) 1 gm 1X ONCE 02/26/19 08:15 02/26/19 08:16 DC 02/26/19 08:31 1 GM Fentanyl Citrate (Fentanyl 2ml Vial) 50 mcg 1X ONCE 02/26/19 10:00 02/26/19 10:01 DC 02/26/19 10:10 50 MCG Info (CONTRAST GIVEN -- Rx MONITORING) 1 each PRN DAILY PRN 02/26/19 09:30 02/28/19 09:29 Iohexol (Omnipaque 300 Mg/ml) 75 ml 1X ONCE 02/26/19 09:30 02/26/19 09:31 DC 02/26/19 09:18 75 ML Multi-Ingredient Mouthwash/Gargle (Gi Cocktail) 20 ml 1X ONCE 02/26/19 08:15 02/26/19 08:16 DC 02/26/19 08:31 20 ML Sodium Chloride 1,000 ml @ 1,000 mls/hr 1X ONCE 02/26/19 10:00 02/26/19 10:59 02/26/19 10:12 1,000 MLS/HR Allergies Allergies Allergies Coded Allergies Type Severity Reaction Last Updated Verified No Known Drug Allergies 05/30/13 No Physical Exam Physical Exam Constitutional: Well developed, well nourished, no acute distress, non-toxic appearance. [] HENT: Normocephalic, atraumatic, bilateral external ears normal, oropharynx moist, no oral exudates, nose normal. [] Eyes: PERRLA, EOMI, conjunctiva normal, no discharge. [] Neck: Normal range of motion, no tenderness, supple, no stridor. [] Cardiovascular:Heart rate regular rhythm, no murmur [] Lungs & Thorax: Bilateral breath sounds clear to auscultation [] Abdomen: Bowel sounds normal, soft, There is tenderness to palpation at EPIGASTRIC AREA, no masses, no pulsatile masses. [] Skin: Warm, dry, no erythema, no rash. [] Back: No tenderness, no CVA tenderness. [] Extremities: No tenderness, no cyanosis, no clubbing, ROM intact, no edema. [] Neurologic: Alert and oriented X 3, normal motor function, normal sensory function, no focal deficits noted. [] Psychologic: Affect normal, judgement normal, mood normal. [] Current Patient Data Vital Signs Vital Signs Date Time Temp Pulse Resp B/P (MAP) Pulse Ox O2 Delivery O2 Flow Rate FiO2 02/26/19 07:34 97.5 74 16 135/74 (94) 97 Room Air 97.5 Lab Values Laboratory Tests Test 02/26/19 07:22 02/26/19 07:38 02/26/19 08:16 Urine Collection Type Unknown Urine Color Yellow Urine Clarity Cloudy Urine pH 5.0 Urine Specific [place] 1.020 Urine Protein Negative mg/dL (NEG-TRACE) Urine Glucose (UA) Negative mg/dL (NEG) Urine Ketones (Stick) Negative mg/dL (NEG) Urine Blood Trace (NEG) Urine Nitrite Negative (NEG) Urine Bilirubin Negative (NEG) Urine Urobilinogen Dipstick 0.2 mg/dL (0.2 mg/dL) Urine Leukocyte Esterase Large (NEG) Urine RBC 1-2 /HPF (0-2) Urine WBC Tntc /HPF (0-4) Urine Bacteria Many /HPF (0-FEW) White Blood Count 6.9 x10^3/uL (4.0-11.0) Red Blood Count 4.61 x10^6/uL (3.50-5.40) Hemoglobin 14.0 g/dL (12.0-15.5) Hematocrit 40.9 % (36.0-47.0) Mean Corpuscular Volume 89 fL (79-100) Mean Corpuscular Hemoglobin 30 pg (25-35) Mean Corpuscular Hemoglobin Concent 34 g/dL (31-37) Red Cell Distribution Width 14.1 % (11.5-14.5) Platelet Count 514 x10^3/uL (140-400) H Neutrophils (%) (Auto) 45 % (31-73) Lymphocytes (%) (Auto) 47 % (24-48) Monocytes (%) (Auto) 6 % (0-9) Eosinophils (%) (Auto) 2 % (0-3) Basophils (%) (Auto) 1 % (0-3) Neutrophils # (Auto) 3.1 x10^3/uL (1.8-7.7) Lymphocytes # (Auto) 3.2 x10^3/uL (1.0-4.8) Monocytes # (Auto) 0.4 x10^3/uL (0.0-1.1) Eosinophils # (Auto) 0.1 x10^3/uL (0.0-0.7) Basophils # (Auto) 0.0 x10^3/uL (0.0-0.2) Sodium Level 145 mmol/L (136-145) Potassium Level 3.6 mmol/L (3.5-5.1) Chloride Level 107 mmol/L (98-107) Carbon Dioxide Level 28 mmol/L (21-32) Anion Gap 10 (6-14) Blood Urea Nitrogen 9 mg/dL (7-20) Creatinine 0.9 mg/dL (0.6-1.0) Estimated GFR (Cockcroft-Gault) 76.8 BUN/Creatinine Ratio 10 (6-20) Glucose Level 101 mg/dL (70-99) H Calcium Level 9.6 mg/dL (8.5-10.1) Total Bilirubin 0.4 mg/dL (0.2-1.0) Aspartate Amino Transferase (AST) 23 U/L (15-37) Alanine Aminotransferase (ALT) 22 U/L (14-59) Alkaline Phosphatase 102 U/L (46-116) Total Protein 7.4 g/dL (6.4-8.2) Albumin 3.6 g/dL (3.4-5.0) Albumin/Globulin Ratio 0.9 (1.0-1.7) L Lipase 407 U/L (73-393) H Laboratory Tests 02/26/19 07:38 Laboratory Tests 02/26/19 08:16 EKG EKG [] Radiology/Procedures Radiology/Procedures [][facility] [address] [place] [address] IMAGING REPORT Signed PATIENT: MILAGROS PALACIOS ACCOUNT: [id number] : 1955 LOCATION: ER AGE: 63 SEX: F EXAM STATUS: REG ER ORD. PHYSICIAN: GREGORIO SMITH DO REASON: abdominal pain, nausea and vomiting for 3 weeks PROCEDURE: CT ABD PELV W/ IV CONTRST ONLY CT ABD PELV W/ IV CONTRST ONLY Indication: Abdominal pain, nausea and vomiting for 3 weeks. History pancreatitis. . Tubal ligation. Exposure: One or more of the following individualized dose reduction techniques were utilized for this examination: 1. Automated exposure control 2. Adjustment of the mA and/or kV according to patient size 3. Use of iterative reconstruction technique. Technique: Intravenous contrast was given. No oral contrast per request. Comparison: July 03, 2018 FINDINGS: Lung bases are clear. The most superior aspect of the dome of the right lobe of liver is not included on the [id number]. Visualized liver appears unremarkable. Spleen unremarkable with calcified granulomata. The pancreatic head again appears mildly enlarged with ill-defined margins and surrounding replacement of fat. The finding is similar to the previous exam. No adrenal mass. Kidneys demonstrate symmetric enhancement without hydronephrosis. There are a couple of small low-density lesions in the left kidney, too small to characterize, but are stable since the previous exam and could represent cysts. No hydronephrosis. Gallbladder is surgically absent. Mild common bile duct dilatation is stable. Aorta mildly calcified without aneurysm. No significant lymph node enlargement. No significant small bowel distention. No evidence of acute colitis. Mild retained stool within the colon. More moderate retained stool in the cecum. The appendix appears within normal limits and unchanged in appearance. No significant ascites or pneumoperitoneum. Uterine calcifications as well as uterine heterogeneity likely due to fibroids Vertebral body height and alignment are intact and stable since prior study IMPRESSION: 1. Pancreatic head again appears abnormal, mildly enlarged with ill-defined margins and adjacent induration. Again, findings could represent pancreatitis, depending on clinical and laboratory correlation. 2. There are couple of small left renal lesions, too small to characterize, but would most commonly represent cysts. Electronically signed by: Jerrod Del Cid MD (02/26/2019 9:46 AM) [id number] DICTATED and SIGNED BY: JERROD DEL CID MD DATE: 02/26/19 0946 Course & Med Decision Making Course & Med Decision Making Pertinent Labs and Imaging studies reviewed. (See chart for details) [] Dragon Disclaimer Dragon Disclaimer This electronic medical record was generated, in whole or in part, using a voice recognition dictation system. Departure Departure Impression: Primary Impression: Acute pancreatitis Disposition: ADMITTED INPATIENT Admitting Physician: Ervin Palacios Condition: STABLE Referrals: Elizabeth PALACIOS MD (PCP) GREGORIO SMITH DO Feb 26, 2019 08:15
[2019-02-26 08:38] LABS: CALCIUM 9.6 mg/dL (8.5-10.1); CREATININE 0.9 mg/dL (0.6-1.0); GFR 76.8; POTASSIUM 3.6 mmol/L (3.5-5.1)
[2019-02-26 08:45] LABS: ALBUMIN 3.6 g/dL (3.4-5.0); ALBUMIN/GLOBULIN RATIO 0.9 (1.0-1.7); TOTAL BILIRUBIN 0.4 mg/dL (0.2-1.0); TOTAL PROTEIN 7.4 g/dL (6.4-8.2)
[2019-02-26] MEDS ORDERED: CONTRAST GIVEN. MC PRN (09:30)
[2019-02-26] MEDS ORDERED: IOHEXOL 300 MG/ML 100ML VIAL. IV ONE (09:30)
--- NOTE | 2019-02-26 09:49 | RAD ---
CT ABD PELV W/ IV CONTRST ONLY Indication: Abdominal pain, nausea and vomiting for 3 weeks. History pancreatitis. . Tubal ligation. Exposure: One or more of the following individualized dose reduction techniques were utilized for this examination: 1. Automated exposure control 2. Adjustment of the mA and/or kV according to patient size 3. Use of iterative reconstruction technique. Technique: Intravenous contrast was given. No oral contrast per request. Comparison: July 03, 2018 FINDINGS: Lung bases are clear. The most superior aspect of the dome of the right lobe of liver is not included on the [id number]. Visualized liver appears unremarkable. Spleen unremarkable with calcified granulomata. The pancreatic head again appears mildly enlarged with ill-defined margins and surrounding replacement of fat. The finding is similar to the previous exam. No adrenal mass. Kidneys demonstrate symmetric enhancement without hydronephrosis. There are a couple of small low-density lesions in the left kidney, too small to characterize, but are stable since the previous exam and could represent cysts. No hydronephrosis. Gallbladder is surgically absent. Mild common bile duct dilatation is stable. Aorta mildly calcified without aneurysm. No significant lymph node enlargement. No significant small bowel distention. No evidence of acute colitis. Mild retained stool within the colon. More moderate retained stool in the cecum. The appendix appears within normal limits and unchanged in appearance. No significant ascites or pneumoperitoneum. Uterine calcifications as well as uterine heterogeneity likely due to fibroids Vertebral body height and alignment are intact and stable since prior study IMPRESSION: 1. Pancreatic head again appears abnormal, mildly enlarged with ill-defined margins and adjacent induration. Again, findings could represent pancreatitis, depending on clinical and laboratory correlation. 2. There are couple of small left renal lesions, too small to characterize, but would most commonly represent cysts. Electronically signed by: Jerrod Del Cid MD (02/26/2019 9:46 AM) [facility]
[2019-02-26] MEDS ORDERED: fentaNYL PF VIAL 100 MCG/2 ML VIAL IV ONE (10:00)
[2019-02-26] MEDS ORDERED: IV NORMAL SALINE 1000ML BAG 1,000 ML IV ONE (10:00)
[2019-02-26] MEDS ORDERED: ONDANSETRON PF 4 MG/2 ML VIAL. IV PRN (10:30)
[2019-02-26] MEDS: fentaNYL PF VIAL 100 MCG/2 ML VIAL IV PRN ×5 (12:38→23:53)
[2019-02-26] MEDS ORDERED: MULTIVIT INFUSN,ADULT 4,VIT K 10 ML, THIAMINE INJ 100 MG, FOLIC ACID INJ 1 MG in IV NOR... IV ONE (14:30)
--- NOTE | 2019-02-26 14:39 | PDOC2 ---
CONSULT Date of Consult Date of Consult DATE: 02/26/19 TIME: 14:38 Reason for Consult Reason for Consult: Recurrent pancreatitis-s/p myrtle, most likely secondary to recent alcohol use. Plan medical therapy for nausea and pain control serial labs O/P MRCP to reassess pancreatic head findings on CT scan Full note dictated Current Problem List Problem List Problems Medical Problems: (1) Acute pancreatitis Status: Acute Current Medications Current Medications Current Medications Ceftriaxone Sodium (Rocephin) 1 gm 1X ONCE IVP Last administered on 02/26/19at 08:31; Start 02/26/19 at 08:15; Stop 02/26/19 at 08:16; Status DC Multi-Ingredient Mouthwash/Gargle (Gi Cocktail) 20 ml 1X ONCE SWSW Last administered on 02/26/19at 08:31; Start 02/26/19 at 08:15; Stop 02/26/19 at 08:16; Status DC Iohexol (Omnipaque 300 Mg/ml) 75 ml 1X ONCE IV Last administered on 02/26/19at 09:18; Start 02/26/19 at 09:30; Stop 02/26/19 at 09:31; Status DC Info (CONTRAST GIVEN -- Rx MONITORING) 1 each PRN DAILY PRN MC SEE COMMENTS; Start 02/26/19 at 09:30; Stop 02/28/19 at 09:29 Sodium Chloride 1,000 ml @ 1,000 mls/hr 1X ONCE IV Last administered on 02/26/19at 10:12; Start 02/26/19 at 10:00; Stop 02/26/19 at 10:59; Status DC Fentanyl Citrate (Fentanyl 2ml Vial) 50 mcg 1X ONCE IV Last administered on 02/26/19at 10:10; Start 02/26/19 at 10:00; Stop 02/26/19 at 10:01; Status DC Ondansetron HCl (Zofran) 4 mg PRN Q8HRS PRN IV NAUSEA/VOMITING; Start 02/26/19 at 10:30; Stop 02/27/19 at 10:29 Fentanyl Citrate (Fentanyl 2ml Vial) 50 mcg PRN Q1HR PRN IV PAIN Last administered on 02/26/19at 12:39; Start 02/26/19 at 10:30; Stop 02/27/19 at 10:29 Sodium Chloride 1,000 ml @ 75 mls/hr [id number] IV ; Start 02/26/19 at 10:18; Stop 02/27/19 at 10:17 Amino Acids/ Glycerin/ Electrolytes 1,000 ml @ 80 mls/hr [id number] IV ; Start 02/26/19 at 12:15 Active Scripts Active Omeprazole 20 Mg Capsule. 1 Cap PO BID 30 Days Keflex (Cephalexin) 500 Mg Capsule 2 Cap PO BID 7 Days [Pantoprazole] 40 MG Tablet.dr 40 Mg PO DAILYAC 30 Days Allergies Allergies: Coded Allergies: No Known Drug Allergies (Unverified , 05/30/13) Vitals VITALS Vital Signs Date Time Temp Pulse Resp B/P (MAP) Pulse Ox O2 Delivery O2 Flow Rate FiO2 02/26/19 13:40 100 02/26/19 10:07 58 16 150/68 (95) Room Air 02/26/19 07:34 97.5 97.5 Labs Labs Laboratory Tests Test 02/26/19 07:22 02/26/19 07:38 02/26/19 08:16 Urine Collection Type Unknown Urine Color Yellow Urine Clarity Cloudy Urine pH 5.0 Urine Specific [place] 1.020 Urine Protein Negative mg/dL (NEG-TRACE) Urine Glucose (UA) Negative mg/dL (NEG) Urine Ketones (Stick) Negative mg/dL (NEG) Urine Blood Trace (NEG) Urine Nitrite Negative (NEG) Urine Bilirubin Negative (NEG) Urine Urobilinogen Dipstick 0.2 mg/dL (0.2 mg/dL) Urine Leukocyte Esterase Large (NEG) Urine RBC 1-2 /HPF (0-2) Urine WBC Tntc /HPF (0-4) Urine Bacteria Many /HPF (0-FEW) White Blood Count 6.9 x10^3/uL (4.0-11.0) Red Blood Count 4.61 x10^6/uL (3.50-5.40) Hemoglobin 14.0 g/dL (12.0-15.5) Hematocrit 40.9 % (36.0-47.0) Mean Corpuscular Volume 89 fL (79-100) Mean Corpuscular Hemoglobin 30 pg (25-35) Mean Corpuscular Hemoglobin Concent 34 g/dL (31-37) Red Cell Distribution Width 14.1 % (11.5-14.5) Platelet Count 514 x10^3/uL (140-400) Neutrophils (%) (Auto) 45 % (31-73) Lymphocytes (%) (Auto) 47 % (24-48) Monocytes (%) (Auto) 6 % (0-9) Eosinophils (%) (Auto) 2 % (0-3) Basophils (%) (Auto) 1 % (0-3) Neutrophils # (Auto) 3.1 x10^3/uL (1.8-7.7) Lymphocytes # (Auto) 3.2 x10^3/uL (1.0-4.8) Monocytes # (Auto) 0.4 x10^3/uL (0.0-1.1) Eosinophils # (Auto) 0.1 x10^3/uL (0.0-0.7) Basophils # (Auto) 0.0 x10^3/uL (0.0-0.2) Sodium Level 145 mmol/L (136-145) Potassium Level 3.6 mmol/L (3.5-5.1) Chloride Level 107 mmol/L (98-107) Carbon Dioxide Level 28 mmol/L (21-32) Anion Gap 10 (6-14) Blood Urea Nitrogen 9 mg/dL (7-20) Creatinine 0.9 mg/dL (0.6-1.0) Estimated GFR (Cockcroft-Gault) 76.8 BUN/Creatinine Ratio 10 (6-20) Glucose Level 101 mg/dL (70-99) Calcium Level 9.6 mg/dL (8.5-10.1) Total Bilirubin 0.4 mg/dL (0.2-1.0) Aspartate Amino Transf (AST/SGOT) 23 U/L (15-37) Alanine Aminotransferase (ALT/SGPT) 22 U/L (14-59) Alkaline Phosphatase 102 U/L (46-116) Total Protein 7.4 g/dL (6.4-8.2) Albumin 3.6 g/dL (3.4-5.0) Albumin/Globulin Ratio 0.9 (1.0-1.7) Lipase 407 U/L (73-393) Laboratory Tests Test 02/26/19 07:22 02/26/19 07:38 02/26/19 08:16 Urine Collection Type Unknown Urine Color Yellow Urine Clarity Cloudy Urine pH 5.0 Urine Specific [place] 1.020 Urine Protein Negative mg/dL (NEG-TRACE) Urine Glucose (UA) Negative mg/dL (NEG) Urine Ketones (Stick) Negative mg/dL (NEG) Urine Blood Trace (NEG) Urine Nitrite Negative (NEG) Urine Bilirubin Negative (NEG) Urine Urobilinogen Dipstick 0.2 mg/dL (0.2 mg/dL) Urine Leukocyte Esterase Large (NEG) Urine RBC 1-2 /HPF (0-2) Urine WBC Tntc /HPF (0-4) Urine Bacteria Many /HPF (0-FEW) White Blood Count 6.9 x10^3/uL (4.0-11.0) Red Blood Count 4.61 x10^6/uL (3.50-5.40) Hemoglobin 14.0 g/dL (12.0-15.5) Hematocrit 40.9 % (36.0-47.0) Mean Corpuscular Volume 89 fL (79-100) Mean Corpuscular Hemoglobin 30 pg (25-35) Mean Corpuscular Hemoglobin Concent 34 g/dL (31-37) Red Cell Distribution Width 14.1 % (11.5-14.5) Platelet Count 514 x10^3/uL (140-400) Neutrophils (%) (Auto) 45 % (31-73) Lymphocytes (%) (Auto) 47 % (24-48) Monocytes (%) (Auto) 6 % (0-9) Eosinophils (%) (Auto) 2 % (0-3) Basophils (%) (Auto) 1 % (0-3) Neutrophils # (Auto) 3.1 x10^3/uL (1.8-7.7) Lymphocytes # (Auto) 3.2 x10^3/uL (1.0-4.8) Monocytes # (Auto) 0.4 x10^3/uL (0.0-1.1) Eosinophils # (Auto) 0.1 x10^3/uL (0.0-0.7) Basophils # (Auto) 0.0 x10^3/uL (0.0-0.2) Sodium Level 145 mmol/L (136-145) Potassium Level 3.6 mmol/L (3.5-5.1) Chloride Level 107 mmol/L (98-107) Carbon Dioxide Level 28 mmol/L (21-32) Anion Gap 10 (6-14) Blood Urea Nitrogen 9 mg/dL (7-20) Creatinine 0.9 mg/dL (0.6-1.0) Estimated GFR (Cockcroft-Gault) 76.8 BUN/Creatinine Ratio 10 (6-20) Glucose Level 101 mg/dL (70-99) Calcium Level 9.6 mg/dL (8.5-10.1) Total Bilirubin 0.4 mg/dL (0.2-1.0) Aspartate Amino Transf (AST/SGOT) 23 U/L (15-37) Alanine Aminotransferase (ALT/SGPT) 22 U/L (14-59) Alkaline Phosphatase 102 U/L (46-116) Total Protein 7.4 g/dL (6.4-8.2) Albumin 3.6 g/dL (3.4-5.0) Albumin/Globulin Ratio 0.9 (1.0-1.7) Lipase 407 U/L (73-393) SAMINA PETER MD Feb 26, 2019 14:39
[2019-02-26 15:00] VITALS: BP 146/60
[2019-02-26] MEDS ORDERED: NITROFURANTOIN MONOHYD/M-CRYST 100 MG CAPSULE. PO SCH (16:30)
--- NOTE | 2019-02-26 17:53 | PDOC1 ---
History and Physical Date of Admission Date of Admission 02/26/19 Identification/Chief Complaint Chief Complaint abd pain Source Source: Chart review, Patient History of Present Illness History of Present Illness She has had a abdominal pain all week and came to ER ist of week and evaluated and released but did not improve on omeprazole so returned today and found to have imaging and lab evidence of pancreatitis and also an E. coli UTI. She is still in pain despite IV meds and IV hydration, she is getting a banana bag as has a hx of drinking but denies recently. She had a cholecystectomy years ago at [facility] Past Surgical History Past Surgical History: Cholecystectomy, , Tubal Ligation Current Problem List Problem List Problems Medical Problems: (1) Acute pancreatitis Status: Acute Current Medications Current Medications Current Medications Medications (Trade) Dose Ordered Sig/Sourav Start Time Stop Time Status Last Admin Dose Admin Amino Acids/ Glycerin/ Electrolytes 1,000 ml @ 80 mls/hr [id number] 02/26/19 12:15 Ceftriaxone Sodium (Rocephin) 1 gm 1X ONCE 02/26/19 08:15 02/26/19 08:16 DC 02/26/19 08:31 1 GM Fentanyl Citrate (Fentanyl 2ml Vial) 50 mcg PRN Q1HR PRN 02/26/19 10:30 02/27/19 10:29 02/26/19 15:28 50 MCG Info (CONTRAST GIVEN -- Rx MONITORING) 1 each PRN DAILY PRN 02/26/19 09:30 02/28/19 09:29 Iohexol (Omnipaque 300 Mg/ml) 75 ml 1X ONCE 02/26/19 09:30 02/26/19 09:31 DC 02/26/19 09:18 75 ML Multi-Ingredient Mouthwash/Gargle (Gi Cocktail) 20 ml 1X ONCE 02/26/19 08:15 02/26/19 08:16 DC 02/26/19 08:31 20 ML Multivitamins 10 ml/Thiamine HCl 100 mg/Folic Acid 1 mg/Sodium Chloride 1,011.2 ml @ 1,000.088 mls/hr 1X ONCE 02/26/19 14:30 02/26/19 15:30 DC 02/26/19 15:28 1,000.088 MLS/HR Nitrofurantoin Macrocrystals (Macrobid) 100 mg BID 02/26/19 20:00 03/03/19 09:01 Ondansetron HCl (Zofran) 4 mg PRN Q8HRS PRN 02/26/19 10:30 02/27/19 10:29 Sodium Chloride 1,000 ml @ 75 mls/hr [id number] 02/26/19 10:18 02/27/19 10:17 Allergies Allergies Allergies Coded Allergies Type Severity Reaction Last Updated Verified No Known Drug Allergies 05/30/13 No ROS Review of System CONSTITUTIONAL: No fever or chills EYES: No recent changes SKIN: No rash or itching CARDIOVASCULAR: No chest pain, syncope, palpitations, or edema RESPIRATORY: No SOB or cough GASTROINTESTINAL: see HPI NEUROLOGICAL: No headaches or weakness ENDOCRINE: No cold or heat intolerance GENITOURINARY: positive UTI MUSCULOSKELETAL: No back pain or joint pain LYMPHATICS: No enlarged lymph nodes PSYCHIATRIC: No anxiety or depression Physical Exam Physical Exam GEN.: uncomfortable. Alert and oriented. HEENT: Head is normocephalic, atraumatic NECK: Supple. LUNGS: Clear to auscultation. HEART: RRR, S1, S2 present. Peripheral pulses intact ABDOMEN: Soft with epigastric and LUQ tenderness. Positive bowel sounds. EXTREMITIES: Without any cyanosis. NEUROLOGIC: Normal speech, normal tone PSYCHIATRIC: Normal affect, normal mood. SKIN: No ulcerations Vitals Vitals Vital Signs Date Time Temp Pulse Resp B/P (MAP) Pulse Ox O2 Delivery O2 Flow Rate FiO2 02/26/19 15:28 100 02/26/19 15:00 97.6 51 18 146/60 (88) Room Air 97.6 Labs Labs Laboratory Tests Test 02/26/19 07:22 02/26/19 07:38 02/26/19 08:16 Urine Collection Type Unknown Urine Color Yellow Urine Clarity Cloudy Urine pH 5.0 Urine Specific [place] 1.020 Urine Protein Negative mg/dL (NEG-TRACE) Urine Glucose (UA) Negative mg/dL (NEG) Urine Ketones (Stick) Negative mg/dL (NEG) Urine Blood Trace (NEG) Urine Nitrite Negative (NEG) Urine Bilirubin Negative (NEG) Urine Urobilinogen Dipstick 0.2 mg/dL (0.2 mg/dL) Urine Leukocyte Esterase Large (NEG) Urine RBC 1-2 /HPF (0-2) Urine WBC Tntc /HPF (0-4) Urine Bacteria Many /HPF (0-FEW) White Blood Count 6.9 x10^3/uL (4.0-11.0) Red Blood Count 4.61 x10^6/uL (3.50-5.40) Hemoglobin 14.0 g/dL (12.0-15.5) Hematocrit 40.9 % (36.0-47.0) Mean Corpuscular Volume 89 fL (79-100) Mean Corpuscular Hemoglobin 30 pg (25-35) Mean Corpuscular Hemoglobin Concent 34 g/dL (31-37) Red Cell Distribution Width 14.1 % (11.5-14.5) Platelet Count 514 x10^3/uL (140-400) Neutrophils (%) (Auto) 45 % (31-73) Lymphocytes (%) (Auto) 47 % (24-48) Monocytes (%) (Auto) 6 % (0-9) Eosinophils (%) (Auto) 2 % (0-3) Basophils (%) (Auto) 1 % (0-3) Neutrophils # (Auto) 3.1 x10^3/uL (1.8-7.7) Lymphocytes # (Auto) 3.2 x10^3/uL (1.0-4.8) Monocytes # (Auto) 0.4 x10^3/uL (0.0-1.1) Eosinophils # (Auto) 0.1 x10^3/uL (0.0-0.7) Basophils # (Auto) 0.0 x10^3/uL (0.0-0.2) Sodium Level 145 mmol/L (136-145) Potassium Level 3.6 mmol/L (3.5-5.1) Chloride Level 107 mmol/L (98-107) Carbon Dioxide Level 28 mmol/L (21-32) Anion Gap 10 (6-14) Blood Urea Nitrogen 9 mg/dL (7-20) Creatinine 0.9 mg/dL (0.6-1.0) Estimated GFR (Cockcroft-Gault) 76.8 BUN/Creatinine Ratio 10 (6-20) Glucose Level 101 mg/dL (70-99) Calcium Level 9.6 mg/dL (8.5-10.1) Total Bilirubin 0.4 mg/dL (0.2-1.0) Aspartate Amino Transf (AST/SGOT) 23 U/L (15-37) Alanine Aminotransferase (ALT/SGPT) 22 U/L (14-59) Alkaline Phosphatase 102 U/L (46-116) Total Protein 7.4 g/dL (6.4-8.2) Albumin 3.6 g/dL (3.4-5.0) Albumin/Globulin Ratio 0.9 (1.0-1.7) Lipase 407 U/L (73-393) Laboratory Tests Test 02/26/19 07:22 02/26/19 07:38 02/26/19 08:16 Urine Collection Type Unknown Urine Color Yellow Urine Clarity Cloudy Urine pH 5.0 Urine Specific [place] 1.020 Urine Protein Negative mg/dL (NEG-TRACE) Urine Glucose (UA) Negative mg/dL (NEG) Urine Ketones (Stick) Negative mg/dL (NEG) Urine Blood Trace (NEG) Urine Nitrite Negative (NEG) Urine Bilirubin Negative (NEG) Urine Urobilinogen Dipstick 0.2 mg/dL (0.2 mg/dL) Urine Leukocyte Esterase Large (NEG) Urine RBC 1-2 /HPF (0-2) Urine WBC Tntc /HPF (0-4) Urine Bacteria Many /HPF (0-FEW) White Blood Count 6.9 x10^3/uL (4.0-11.0) Red Blood Count 4.61 x10^6/uL (3.50-5.40) Hemoglobin 14.0 g/dL (12.0-15.5) Hematocrit 40.9 % (36.0-47.0) Mean Corpuscular Volume 89 fL (79-100) Mean Corpuscular Hemoglobin 30 pg (25-35) Mean Corpuscular Hemoglobin Concent 34 g/dL (31-37) Red Cell Distribution Width 14.1 % (11.5-14.5) Platelet Count 514 x10^3/uL (140-400) Neutrophils (%) (Auto) 45 % (31-73) Lymphocytes (%) (Auto) 47 % (24-48) Monocytes (%) (Auto) 6 % (0-9) Eosinophils (%) (Auto) 2 % (0-3) Basophils (%) (Auto) 1 % (0-3) Neutrophils # (Auto) 3.1 x10^3/uL (1.8-7.7) Lymphocytes # (Auto) 3.2 x10^3/uL (1.0-4.8) Monocytes # (Auto) 0.4 x10^3/uL (0.0-1.1) Eosinophils # (Auto) 0.1 x10^3/uL (0.0-0.7) Basophils # (Auto) 0.0 x10^3/uL (0.0-0.2) Sodium Level 145 mmol/L (136-145) Potassium Level 3.6 mmol/L (3.5-5.1) Chloride Level 107 mmol/L (98-107) Carbon Dioxide Level 28 mmol/L (21-32) Anion Gap 10 (6-14) Blood Urea Nitrogen 9 mg/dL (7-20) Creatinine 0.9 mg/dL (0.6-1.0) Estimated GFR (Cockcroft-Gault) 76.8 BUN/Creatinine Ratio 10 (6-20) Glucose Level 101 mg/dL (70-99) Calcium Level 9.6 mg/dL (8.5-10.1) Total Bilirubin 0.4 mg/dL (0.2-1.0) Aspartate Amino Transf (AST/SGOT) 23 U/L (15-37) Alanine Aminotransferase (ALT/SGPT) 22 U/L (14-59) Alkaline Phosphatase 102 U/L (46-116) Total Protein 7.4 g/dL (6.4-8.2) Albumin 3.6 g/dL (3.4-5.0) Albumin/Globulin Ratio 0.9 (1.0-1.7) Lipase 407 U/L (73-393) Images Images CT ABD PELV W/ IV CONTRST ONLY Indication: Abdominal pain, nausea and vomiting for 3 weeks. History pancreatitis. . Tubal ligation. Exposure: One or more of the following individualized dose reduction techniques were utilized for this examination: 1. Automated exposure control 2. Adjustment of the mA and/or kV according to patient size 3. Use of iterative reconstruction technique. Technique: Intravenous contrast was given. No oral contrast per request. Comparison: July 03, 2018 FINDINGS: Lung bases are clear. The most superior aspect of the dome of the right lobe of liver is not included on the [id number]. Visualized liver appears unremarkable. Spleen unremarkable with calcified granulomata. The pancreatic head again appears mildly enlarged with ill-defined margins and surrounding replacement of fat. The finding is similar to the previous exam. No adrenal mass. Kidneys demonstrate symmetric enhancement without hydronephrosis. There are a couple of small low-density lesions in the left kidney, too small to characterize, but are stable since the previous exam and could represent cysts. No hydronephrosis. Gallbladder is surgically absent. Mild common bile duct dilatation is stable. Aorta mildly calcified without aneurysm. No significant lymph node enlargement. No significant small bowel distention. No evidence of acute colitis. Mild retained stool within the colon. More moderate retained stool in the cecum. The appendix appears within normal limits and unchanged in appearance. No significant ascites or pneumoperitoneum. Uterine calcifications as well as uterine heterogeneity likely due to fibroids Vertebral body height and alignment are intact and stable since prior study IMPRESSION: 1. Pancreatic head again appears abnormal, mildly enlarged with ill-defined margins and adjacent induration. Again, findings could represent pancreatitis, depending on clinical and laboratory correlation. 2. There are couple of small left renal lesions, too small to characterize, but would most commonly represent cysts. VTE Prophylaxis Ordered VTE Prophylaxis Devices: No VTE Pharmacological Prophylaxi: No Assessment/Plan Assessment/Plan Pancreatitis - IVF, bowel rest, pain control, GI consult, MRCP E.coli UTI - Elizabeth Wagner MD Feb 26, 2019 17:53
[2019-02-26 19:00] VITALS: BP 106/58
[2019-02-26] MEDS: AMINO AC 3%/ELECTROLYTE/GLYCER 1,000 ML IV SCH ×2 (20:35→20:51)
[2019-02-26] MEDS: IV NORMAL SALINE 1000ML BAG 1,000 ML IV SCH ×2 (20:35→21:49)
[2019-02-26] MEDS: NITROFURANTOIN MONOHYD/M-CRYST 100 MG CAPSULE. PO SCH (20:59)
[2019-02-26 21:19] LABS: BARBITURATES NEG (NEG); BENZODIAZEPINES NEG (NEG); CANNABINOIDS NEG (NEG); COCAINE NEG (NEG); METHADONE NEG (NEG); OPIATES NEG (NEG); PHENCYCLIDINE NEG (NEG)
[2019-02-26 21:22] LABS: AMPHETAMINE/METHAMPHETAMINE NEG (NEG)
[2019-02-26 22:41] VITALS: BP 107/45
[2019-02-27 02:41] VITALS: BP 114/45
[2019-02-27] MEDS: fentaNYL PF VIAL 100 MCG/2 ML VIAL IV PRN ×2 (03:17→09:13)
[2019-02-27 04:23] LABS: BASO # 0.1 x10^3/uL (0.0-0.2); BASO % 1 % (0-3); EOS # 0.1 x10^3/uL (0.0-0.7); EOS % 1 % (0-3); HEMATOCRIT 38.4 % (36.0-47.0); HEMOGLOBIN 12.9 g/dL (12.0-15.5); LYMPH # 3.1 x10^3/uL (1.0-4.8); LYMPH % 45 % (24-48); MEAN CORPUSCULAR HEMOGLOBIN 30 pg (25-35); MEAN CORPUSCULAR HGB CONC 34 g/dL (31-37); MEAN CORPUSCULAR VOLUME 89 fL (79-100); MONO # 0.5 x10^3/uL (0.0-1.1); MONO % 8 % (0-9); NEUT # 3.2 x10^3/uL (1.8-7.7); NEUT % 45 % (31-73); PLATELET COUNT 429 x10^3/uL (140-400); RED CELL DISTRIBUTION WIDTH 13.9 % (11.5-14.5)
[2019-02-27 04:43] LABS: ALBUMIN 3.1 g/dL (3.4-5.0); ALBUMIN/GLOBULIN RATIO 0.9 (1.0-1.7); CALCIUM 9.1 mg/dL (8.5-10.1); CHOLESTEROL/HDL RATIO 2.9; CREATININE 0.7 mg/dL (0.6-1.0); GFR 102.6; POTASSIUM 3.9 mmol/L (3.5-5.1); TOTAL BILIRUBIN 0.5 mg/dL (0.2-1.0); TOTAL PROTEIN 6.7 g/dL (6.4-8.2)
--- NOTE | 2019-02-27 06:47 | CONS ---
DATE OF CONSULTATION: REFERRING PHYSICIAN: Dr. Rafiq Plaacios. REASON FOR CONSULTATION: Recurrent pancreatitis. HISTORY OF PRESENT ILLNESS: This is a 63-year-old -[place] female with past medical history significant for cholecystectomy, , tubal ligation, recurrent pancreatitis, gastritis, vitamin D deficiency. She was admitted to [facility] with a 3-week history of pain. She did consume alcohol before the episode began at the time of her first day in the ____ alcoholic beverages, she has not had any since, had poor appetite and persistence of the pain in the morning hour visit, was unable to control, subsequently has been admitted for pain control. The patient states the pain sits in epigastric region, does not radiate. It is similar to experience the pain she has had in the past. Imaging studies do reveal persistent abnormalities of the head of the pancreas, which had been present previously with ill-defined margins and adjacent induration. Differential includes chronic pancreatitis, malignancy interval MRCP as an outpatient may be warranted if the pain persists after the resolution of the acute attack, otherwise without additional complaints. PAST MEDICAL HISTORY: Cholecystectomy, , tubal ligation, vitamin D deficiency, gastritis. ALLERGIES: None. MEDICATIONS: Include: 1. Fentanyl. 2. Zofran. SOCIAL HISTORY: She is a drinker or smoker. FAMILY HISTORY: Noncontributory. REVIEW OF SYSTEMS: Per records. PHYSICAL EXAMINATION: GENERAL: Reveals a thin -[place] female who is alert, cooperative, in no acute distress. VITAL SIGNS: Temperature 97.5, pulse 58, respiratory rate 16 and blood pressure is 150/68. HEENT: Normocephalic, atraumatic head. Pupils and extraocular muscles are not tested. Sclerae anicteric. NECK: Supple. LUNGS: Clear. CARDIOVASCULAR: Reveals an S1, S2 without S3, S4 or appreciable murmur. ABDOMEN: Reveals a soft abdomen, normal bowel sounds without appreciable hepatosplenomegaly with epigastric tenderness to deep palpation. Multiple surgical incisions. EXTREMITIES: Reveals no cyanosis, clubbing or edema. LABORATORY STUDIES: Hemoglobin is 14, hematocrit 40.9, white count 6.9, platelet count 514,000. Sodium is 145, potassium 3.6, chloride 107, bicarbonate is 28, BUN 9, creatinine 0.9, glucose 101, calcium 9.1, total bilirubin 0.3, AST of 22, ALT 22, alkaline phosphatase 102, total protein 7.4, albumin 3.5 and lipase of 407. CT scan reveals ill-defined pancreatic head without free air, mass or air bubbles. IMPRESSION: Recurrent pancreatitis, most likely is secondary to recent alcohol consumption. Recommend medical therapy, pain medications, antiemetics, alcohol abstinence long-term is recommended and MRCP as an outpatient if the pain should persist or reassess the pancreatic head may be warranted. SAMINA PETER MD DR: STEFANY/brittnee JOB#: [id number] / [id number]
[2019-02-27 08:45] VITALS: BP 115/62
[2019-02-27] MEDS: cefTRIAXone IV Push 1 GM VIAL. IVP SCH (09:13)
--- NOTE | 2019-02-27 09:23 | PDOC ---
GI PROGRESS NOTES Date Date/Time DATE: 02/27/19 TIME: 09:21 Subjective Subjective Still with some nausea and soreness in her abdomen. Fortunately lipase now is normal. Objective Vitals Vital Signs Date Time Temp Pulse Resp B/P (MAP) Pulse Ox O2 Delivery O2 Flow Rate FiO2 02/27/19 09:13 Room Air 02/27/19 08:45 98.1 48 17 115/62 (79) 99 Room Air 98.1 02/27/19 04:02 100 Room Air 02/27/19 03:17 20 Room Air 02/27/19 02:41 98.5 68 16 114/45 (68) 100 Room Air 98.5 02/27/19 00:35 97 Room Air 02/26/19 23:53 97 Room Air 02/26/19 22:41 98.4 52 18 107/45 (65) 97 Room Air 98.4 02/26/19 21:49 98 Room Air 02/26/19 21:00 98 Room Air 02/26/19 20:36 98 Room Air 02/26/19 19:57 Room Air 02/26/19 19:00 99.1 55 16 106/58 (74) 98 Room Air 99.1 02/26/19 18:53 20 93 Room Air 02/26/19 15:28 100 02/26/19 15:00 97.6 51 18 146/60 (88) 100 Room Air 97.6 02/26/19 13:40 100 02/26/19 12:39 100 02/26/19 10:07 58 16 150/68 (95) 100 Room Air Labs Labs Laboratory Tests Test 02/26/19 21:00 02/27/19 03:50 Urine Opiates Screen Neg (NEG) Urine Methadone Screen Neg (NEG) Urine Barbiturates Neg (NEG) Urine Phencyclidine Screen Neg (NEG) Urine Amphetamine/Methamphetamine Neg (NEG) Urine Benzodiazepines Screen Neg (NEG) Urine Cocaine Screen Neg (NEG) Urine Cannabinoids Screen Neg (NEG) Urine Ethyl Alcohol Neg (NEG) White Blood Count 7.0 x10^3/uL (4.0-11.0) Red Blood Count 4.30 x10^6/uL (3.50-5.40) Hemoglobin 12.9 g/dL (12.0-15.5) Hematocrit 38.4 % (36.0-47.0) Mean Corpuscular Volume 89 fL (79-100) Mean Corpuscular Hemoglobin 30 pg (25-35) Mean Corpuscular Hemoglobin Concent 34 g/dL (31-37) Red Cell Distribution Width 13.9 % (11.5-14.5) Platelet Count 429 x10^3/uL (140-400) Neutrophils (%) (Auto) 45 % (31-73) Lymphocytes (%) (Auto) 45 % (24-48) Monocytes (%) (Auto) 8 % (0-9) Eosinophils (%) (Auto) 1 % (0-3) Basophils (%) (Auto) 1 % (0-3) Neutrophils # (Auto) 3.2 x10^3/uL (1.8-7.7) Lymphocytes # (Auto) 3.1 x10^3/uL (1.0-4.8) Monocytes # (Auto) 0.5 x10^3/uL (0.0-1.1) Eosinophils # (Auto) 0.1 x10^3/uL (0.0-0.7) Basophils # (Auto) 0.1 x10^3/uL (0.0-0.2) Sodium Level 141 mmol/L (136-145) Potassium Level 3.9 mmol/L (3.5-5.1) Chloride Level 107 mmol/L (98-107) Carbon Dioxide Level 26 mmol/L (21-32) Anion Gap 8 (6-14) Blood Urea Nitrogen 9 mg/dL (7-20) Creatinine 0.7 mg/dL (0.6-1.0) Estimated GFR (Cockcroft-Gault) 102.6 BUN/Creatinine Ratio 13 (6-20) Glucose Level 102 mg/dL (70-99) Calcium Level 9.1 mg/dL (8.5-10.1) Total Bilirubin 0.5 mg/dL (0.2-1.0) Aspartate Amino Transf (AST/SGOT) 17 U/L (15-37) Alanine Aminotransferase (ALT/SGPT) 17 U/L (14-59) Alkaline Phosphatase 91 U/L (46-116) Total Protein 6.7 g/dL (6.4-8.2) Albumin 3.1 g/dL (3.4-5.0) Albumin/Globulin Ratio 0.9 (1.0-1.7) Triglycerides Level 113 mg/dL (0-150) Cholesterol Level 160 mg/dL (0-200) LDL Cholesterol, Calculated 81 mg/dL (0-100) VLDL Cholesterol, Calculated 23 mg/dL (0-40) Non-HDL Cholesterol Calculated 104 mg/dL (0-129) HDL Cholesterol 56 mg/dL (40-60) Cholesterol/HDL Ratio 2.9 Amylase Level 58 U/L (25-115) Lipase 256 U/L (73-393) Physical Exam Physical Exam Alert Chest clear Abdomen soft mildly tender in the periumbilical region, normal bowel sounds Assessment Assessment Mild acute pancreatitis. Likely flared by recent alcohol ingestion although other possibilities cannot totally be excluded. Lipase is now normal but she still clinically presenting with some evidence of pancreatitis. Plan Plan Clear liquid diet. If tolerated may slowly advance but would be cautious about advancing too quickly- she tolerated a full liquid diet would be okay to discharge soon Total alcohol abstinence BEE LOPEZ MD Feb 27, 2019 09:23
[2019-02-27] MEDS: NITROFURANTOIN MONOHYD/M-CRYST 100 MG CAPSULE. PO SCH (10:00)
--- NOTE | 2019-02-27 11:57 | PDOC ---
PROGRESS NOTES Subjective Still having pain, didn't sleep well, starting clears as lab better, urine C&S pending Objective Afebrile General: A&O, mild discomfort Heart: RRR Lungs: CTA Abd: mild tenderness Ext: no C/C/E Vital Signs Vital Signs Date Time Temp Pulse Resp B/P (MAP) Pulse Ox O2 Delivery O2 Flow Rate FiO2 02/27/19 10:00 Room Air 02/27/19 08:45 98.1 48 17 115/62 (79) 99 98.1 I & O Intake and Output 02/27/19 06:59 Intake Total 0 ml Output Total 1000 ml Balance -1000 ml Intake Oral 0 ml Output Urine Total 1000 ml Assessment and Plan (1) Acute pancreatitis - labs tosha, clear liquids (2) UTI - continue IV rocephin Status: Acute Elizabeth BUCHANAN MD Feb 27, 2019 11:57
[2019-02-27 11:59] VITALS: BP 116/62
[2019-02-27] MEDS: AMINO AC 3%/ELECTROLYTE/GLYCER 1,000 ML IV SCH (12:32)
[2019-02-27] MEDS ORDERED: KETOROLAC 15 MG/ML VIAL. IV PRN (13:30)
[2019-02-27] MEDS: oxyCODONE/APAP 5/325 1 TAB TABLET PO PRN ×3 (14:17→23:30)
[2019-02-27 15:59] VITALS: BP 105/51
[2019-02-27 19:00] VITALS: BP 113/43
[2019-02-27 22:56] VITALS: BP 99/37
[2019-02-28] MEDS: AMINO AC 3%/ELECTROLYTE/GLYCER 1,000 ML IV SCH ×2 (01:45→16:46)
[2019-02-28 03:00] VITALS: BP 118/50
[2019-02-28 03:58] LABS: ALBUMIN 3.1 g/dL (3.4-5.0); ALBUMIN/GLOBULIN RATIO 0.8 (1.0-1.7); CALCIUM 9.3 mg/dL (8.5-10.1); CREATININE 0.7 mg/dL (0.6-1.0); GFR 102.6; TOTAL BILIRUBIN 0.3 mg/dL (0.2-1.0); TOTAL PROTEIN 6.8 g/dL (6.4-8.2)
[2019-02-28] MEDS: oxyCODONE/APAP 5/325 1 TAB TABLET PO PRN ×3 (06:03→18:33)
[2019-02-28] MEDS: cefTRIAXone IV Push 1 GM VIAL. IVP SCH (07:55)
[2019-02-28 07:59] VITALS: BP 110/77
[2019-02-28 11:59] VITALS: BP 138/69
--- NOTE | 2019-02-28 14:47 | PDOC ---
PROGRESS NOTES Subjective c/o pain and now has a cough (smoker), GI labs back to normal. Urine growing E. coli Objective Afebrile General: tired Heart: RRR Lungs: CTA but has a dry cough Abd: soft, positive bowel sounds Ext: no C/C/E Vital Signs Vital Signs Date Time Temp Pulse Resp B/P (MAP) Pulse Ox O2 Delivery O2 Flow Rate FiO2 02/28/19 13:34 Room Air 02/28/19 11:59 98.1 51 18 138/69 (92) 100 98.1 I & O Intake and Output 02/28/19 06:59 Intake Total 1500 ml Output Total 1100 ml Balance 400 ml Intake Oral 500 ml IV Total 1000 ml Output Urine Total 1100 ml # Voids 6 Assessment and Plan pancreatitis - labs normal, advancing diet, needing help to have BM E. coli UTI - C&S pending, continue Rocephin cough - smoker - add neb tx prn and Elizabeth Adrian MD Feb 28, 2019 14:47
[2019-02-28] MEDS: IPRATRPIUM/ALBUTEROL 0.5/2.5MG 3 ML NEBU. NEB SCH ×2 (15:46→20:46)
[2019-02-28 15:59] VITALS: BP 136/67
--- NOTE | 2019-02-28 16:35 | PDOC ---
GI PROGRESS NOTES Date Date/Time DATE: 02/28/19 TIME: 16:33 Subjective Subjective Still sore but overall pain has improved. Tolerating liquids for the most part. Some distention noted and has not had a bowel movement since admission Objective Vitals Vital Signs Date Time Temp Pulse Resp B/P (MAP) Pulse Ox O2 Delivery O2 Flow Rate FiO2 02/28/19 15:50 97 Room Air 02/28/19 14:47 Room Air 02/28/19 13:34 Room Air 02/28/19 11:59 98.1 51 18 138/69 (92) 100 Room Air 98.1 02/28/19 08:04 Room Air 02/28/19 08:00 Room Air 02/28/19 07:59 98.5 59 18 110/77 (88) 100 Room Air 98.5 02/28/19 06:04 Room Air 02/28/19 03:00 97.4 49 17 118/50 (72) 94 Room Air 97.4 02/28/19 00:45 Room Air 02/27/19 23:30 Room Air 02/27/19 23:27 92 Room Air 02/27/19 22:56 97.6 44 16 99/37 (57) 92 Room Air 97.6 02/27/19 20:00 Room Air 02/27/19 19:13 Room Air 02/27/19 19:00 98.5 90 16 113/43 (66) 95 Room Air 98.5 Labs Labs Laboratory Tests Test 02/28/19 03:15 Sodium Level 140 mmol/L (136-145) Potassium Level 4.0 mmol/L (3.5-5.1) Chloride Level 105 mmol/L (98-107) Carbon Dioxide Level 28 mmol/L (21-32) Anion Gap 7 (6-14) Blood Urea Nitrogen 12 mg/dL (7-20) Creatinine 0.7 mg/dL (0.6-1.0) Estimated GFR (Cockcroft-Gault) 102.6 BUN/Creatinine Ratio 17 (6-20) Glucose Level 115 mg/dL (70-99) Calcium Level 9.3 mg/dL (8.5-10.1) Total Bilirubin 0.3 mg/dL (0.2-1.0) Aspartate Amino Transf (AST/SGOT) 20 U/L (15-37) Alanine Aminotransferase (ALT/SGPT) 19 U/L (14-59) Alkaline Phosphatase 90 U/L (46-116) Total Protein 6.8 g/dL (6.4-8.2) Albumin 3.1 g/dL (3.4-5.0) Albumin/Globulin Ratio 0.8 (1.0-1.7) Lipase 191 U/L (73-393) Physical Exam Physical Exam Alert Chest clear Abdomen soft mildly tender in the periumbilical region, normal bowel sounds Assessment Assessment Mild acute pancreatitis. Likely flared by recent alcohol ingestion although other possibilities cannot totally be excluded. Lipase is now normal but she still clinically presenting with some evidence of pancreatitis. Constipation. Likely related to poor intake and pain medications. Will initiate MiraLAX and constipation protocol which hopefully will provide benefit Plan Plan Advance to full liquid diet. If tolerated may slowly advance but would be cautious about advancing too quickly- t would be okay to discharge soon Total alcohol abstinence BEE LOPEZ MD Feb 28, 2019 16:35
[2019-02-28] MEDS: BENZONATATE 100 MG CAPSULE. PO SCH ×2 (16:46→21:46)
[2019-02-28] MEDS: DOCUSATE SODIUM 100 MG CAPSULE. PO PRN (16:53)
[2019-02-28] MEDS: POLYETHYLENE GLYCOL 3350 17 GM PACKET. PO PRN (16:53)
[2019-02-28] MEDS ORDERED: ONDANSETRON PF 4 MG/2 ML VIAL. IV PRN (18:30)
[2019-02-28 19:00] VITALS: BP 123/40
[2019-02-28] MEDS: LACTOBACILLUS RHAMNOSUS GG 1 CAPSULE. PO SCH (21:46)
[2019-02-28 23:00] VITALS: BP 97/51
[2019-03-01] MEDS: DOCUSATE SODIUM 100 MG CAPSULE. PO PRN ×2 (02:20→07:58)
[2019-03-01] MEDS: POLYETHYLENE GLYCOL 3350 17 GM PACKET. PO PRN (02:20)
[2019-03-01] MEDS: oxyCODONE/APAP 5/325 1 TAB TABLET PO PRN ×2 (02:20→07:57)
[2019-03-01 03:00] VITALS: BP 114/55
[2019-03-01] MEDS: AMINO AC 3%/ELECTROLYTE/GLYCER 1,000 ML IV SCH (03:40)
[2019-03-01 07:00] VITALS: BP 122/64
[2019-03-01] MEDS: LACTOBACILLUS RHAMNOSUS GG 1 CAPSULE. PO SCH (07:58)
[2019-03-01] MEDS: BENZONATATE 100 MG CAPSULE. PO SCH (07:58)
[2019-03-01] MEDS: IPRATRPIUM/ALBUTEROL 0.5/2.5MG 3 ML NEBU. NEB SCH ×2 (08:01→11:36)
[2019-03-01] MEDS: cefTRIAXone IV Push 1 GM VIAL. IVP SCH (09:00)
[2019-03-01 11:00] VITALS: BP 102/45
--- NOTE | 2019-03-01 11:02 | PDOC ---
G I PROGRESS NOTE Reason for Follow-up Abd pain/pancreatitis Subjective Tolerating PO/wants to go home Physical Exam Lungs clear CV S1 S2 ABD +BS, soft, nontender Review of Relevant I have reviewed the following items tyesha (where applicable) has been applied. Labs Laboratory Tests Test 02/28/19 03:15 Sodium Level 140 mmol/L (136-145) Potassium Level 4.0 mmol/L (3.5-5.1) Chloride Level 105 mmol/L (98-107) Carbon Dioxide Level 28 mmol/L (21-32) Anion Gap 7 (6-14) Blood Urea Nitrogen 12 mg/dL (7-20) Creatinine 0.7 mg/dL (0.6-1.0) Estimated GFR (Cockcroft-Gault) 102.6 BUN/Creatinine Ratio 17 (6-20) Glucose Level 115 mg/dL (70-99) Calcium Level 9.3 mg/dL (8.5-10.1) Total Bilirubin 0.3 mg/dL (0.2-1.0) Aspartate Amino Transf (AST/SGOT) 20 U/L (15-37) Alanine Aminotransferase (ALT/SGPT) 19 U/L (14-59) Alkaline Phosphatase 90 U/L (46-116) Total Protein 6.8 g/dL (6.4-8.2) Albumin 3.1 g/dL (3.4-5.0) Albumin/Globulin Ratio 0.8 (1.0-1.7) Lipase 191 U/L (73-393) Microbiology 02/26/19 Urine Culture - Preliminary, Resulted 02/26/19 Urine Culture Result 1 (DARSHAN) - Preliminary, Resulted Medications Current Medications Ceftriaxone Sodium (Rocephin) 1 gm 1X ONCE IVP Last administered on 02/26/19at 08:31; Start 02/26/19 at 08:15; Stop 02/26/19 at 08:16; Status DC Multi-Ingredient Mouthwash/Gargle (Gi Cocktail) 20 ml 1X ONCE SWSW Last administered on 02/26/19at 08:31; Start 02/26/19 at 08:15; Stop 02/26/19 at 08:16; Status DC Iohexol (Omnipaque 300 Mg/ml) 75 ml 1X ONCE IV Last administered on 02/26/19at 09:18; Start 02/26/19 at 09:30; Stop 02/26/19 at 09:31; Status DC Info (CONTRAST GIVEN -- Rx MONITORING) 1 each PRN DAILY PRN MC SEE COMMENTS; Start 02/26/19 at 09:30; Stop 02/28/19 at 09:29; Status DC Sodium Chloride 1,000 ml @ 1,000 mls/hr 1X ONCE IV Last administered on 02/26/19at 10:12; Start 02/26/19 at 10:00; Stop 02/26/19 at 10:59; Status DC Fentanyl Citrate (Fentanyl 2ml Vial) 50 mcg 1X ONCE IV Last administered on 02/26/19at 10:10; Start 02/26/19 at 10:00; Stop 02/26/19 at 10:01; Status DC Ondansetron HCl (Zofran) 4 mg PRN Q8HRS PRN IV NAUSEA/VOMITING Last administered on 02/27/19at 10:05; Start 02/26/19 at 10:30; Stop 02/27/19 at 10:29; Status DC Fentanyl Citrate (Fentanyl 2ml Vial) 50 mcg PRN Q1HR PRN IV PAIN Last administered on 02/27/19at 09:13; Start 02/26/19 at 10:30; Stop 02/27/19 at 10:29; Status DC Sodium Chloride 1,000 ml @ 75 mls/hr Q50C40T IV ; Start 02/26/19 at 10:18; Stop 02/27/19 at 10:17; Status DC Amino Acids/ Glycerin/ Electrolytes 1,000 ml @ 80 mls/hr [id number] IV Last administered on 03/01/19at 03:40; Start 02/26/19 at 12:15 Multivitamins 10 ml/Thiamine HCl 100 mg/Folic Acid 1 mg/Sodium Chloride 1,011.2 ml @ 1,000.088 mls/hr 1X ONCE IV Last administered on 02/26/19at 15:28; Start 02/26/19 at 14:30; Stop 02/26/19 at 15:30; Status DC Nitrofurantoin Macrocrystals (Macrobid) 100 mg BID PO ; Start 02/26/19 at 16:30; Stop 02/26/19 at 16:18; Status DC Nitrofurantoin Macrocrystals (Macrobid) 100 mg BID PO Last administered on 02/27/19 10:05; Start 02/26/19 at 20:00; Stop 02/27/19 at 10:34; Status DC Ceftriaxone Sodium (Rocephin) 1 gm Q24H IVP Last administered on 03/01/19 09:00; Start 02/27/19 at 09:00 Oxycodone/ Acetaminophen (Percocet 5/325) 1 tab PRN Q4HRS PRN PO PAIN Last administered on 03/01/19 07:57; Start 02/27/19 at 13:30 Ketorolac Tromethamine (Toradol 15mg Vial) 15 mg PRN Q6HRS PRN IV PAIN; Start 02/27/19 at 13:30; Stop 03/04/19 at 13:29 Lactobacillus Rhamnosus (Culturelle) 1 cap BID PO Last administered on 03/01/19 07:58; Start 02/28/19 at 21:00 Polyethylene Glycol (miraLAX PACKET) 17 gm PRN DAILY PRN PO CONSTIPATION Last administered on 02/28/19at 16:53; Start 02/28/19 at 15:00 Docusate Sodium (Colace) 100 mg PRN DAILY PRN PO HARD STOOLS Last administered on 03/01/19 07:58; Start 02/28/19 at 15:00 Benzonatate (Tessalon Perle) 100 mg CFQ013 PO Last administered on 03/01/19 07:58; Start 02/28/19 at 15:00 Albuterol/ Ipratropium (Duoneb) 3 ml RTQID NEB Last administered on 03/01/19 08:01; Start 02/28/19 at 16:00 Ondansetron HCl (Zofran) 4 mg PRN Q6HRS PRN IV NAUSEA/VOMITING Last administered on 02/28/19 18:33; Start 02/28/19 at 18:30 Active Scripts Active Omeprazole 20 Mg Capsule. 1 Cap PO BID 30 Days Keflex (Cephalexin) 500 Mg Capsule 2 Cap PO BID 7 Days [Pantoprazole] 40 MG Tablet.dr 40 Mg PO DAILYAC 30 Days Vitals/I & O Vital Sign - Last 24 Hours 02/28/19 02/28/19 02/28/19 02/28/19 11:59 13:34 14:47 15:50 Temp 98.1 98.1 Pulse 51 Resp 18 B/P (MAP) 138/69 (92) Pulse Ox 100 97 O2 Delivery Room Air Room Air Room Air Room Air 02/28/19 02/28/19 02/28/19 02/28/19 15:59 18:33 19:00 20:00 Temp 98.0 98.3 98.0 98.3 Pulse 53 47 Resp 17 16 B/P (MAP) 136/67 (90) 123/40 (67) Pulse Ox 94 100 O2 Delivery Room Air Room Air Room Air 02/28/19 02/28/19 02/28/19 03/01/19 20:49 21:13 23:00 02:20 Temp 98.4 98.4 Pulse 58 Resp 16 B/P (MAP) 97/51 (66) Pulse Ox 100 100 96 96 O2 Delivery Room Air Room Air Room Air 03/01/19 03/01/19 03/01/19 03/01/19 03:00 03:43 07:00 07:57 Temp 98.3 98.0 98.3 98.0 Pulse 54 54 Resp 16 19 18 B/P (MAP) 114/55 (74) 122/64 (83) Pulse Ox 96 96 96 O2 Delivery Room Air Room Air Room Air 03/01/19 03/01/19 08:01 09:16 Resp 18 Pulse Ox 99 O2 Delivery Room Air Room Air Intake and Output 02/28/19 02/28/19 03/01/19 14:59 22:59 06:59 Output Total 600 ml Balance -600 ml Problem List Problems Medical Problems: (1) Acute pancreatitis Status: Acute Assessment Recurrent pancreatitis- most likely secondary to etoh use, half-way abstinence reommended. stable for release home today SAMINA PETER MD Mar 01, 2019 11:02
[2019-03-01] MEDS ORDERED: POLY17PO28 PO (11:56)
[2019-03-01] MEDS ORDERED: AMOX1TAB61 PO (11:56)
[2019-03-01] MEDS ORDERED: LACT1CAP19 PO (11:56)
[2019-03-01] MEDS ORDERED: OXYC1TAB15 PO (11:56)
--- NOTE | 2019-03-01 12:02 | PDOC3 ---
Discharge Summary [facility] Date of Admission: Feb 26, 2019 Discharge Date: Mar 01, 2019 Admitting Diagnosis pancreatitis Final Diagnosis Problems Medical Problems: (1) Acute pancreatitis Status: Acute CONSULTS GI Procedures none Brief Hospital Course Ms. Buchanan is a 63 old who presented with: acute pancreatitis probably from alcohol use - labs normalized with bowel rest, provided PPN in the interim, advancing diet and tolerating, needing help to have BM, pain controlled with Percocet 5, she will abstain from drinking E. coli UTI - C&S pending, received Rocephin but will switch to Augmentin at discharge x 7 more days cough - smoker - added neb tx prn and Tessalon and resolved, she will try to quit Disposition home CONDITION AT DISCHARGE: Improved, Stable Diet as tolerated Scheduled Amoxicillin/Potassium Clav (Augmentin 875-125 Tablet), 1 TAB PO BID Lactobacillus Rhamnosus Gg (Culturelle), 1 CAP PO BID Omeprazole (Omeprazole), 1 CAP PO BID Scheduled PRN Oxycodone/Apap 5-325 (Percocet 5-325 Mg Tablet ), 1 TAB PO PRN Q4HRS PRN for PAIN Polyethylene Glycol 3350 (Polyethylene Glycol 3350), 17 GM PO PRN DAILY PRN for CONSTIPATION Discontinued Medications Cephalexin (Keflex), 2 CAP PO BID [Pantoprazole], 40 MG PO DAILYAC Follow Up 1-2 weeks, return to work 03/08/19 Elizabeth BUCHANAN MD Mar 01, 2019 12:02
--- NOTE | 2019-03-01 12:50 | NUR ---
Discharge instructions, medications and prescriptions reviewed with patient, she verb. understanding all instructions and denies questions. Patient discharge to home per self with all belongings, instructions and prescriptions.
== END 2019-03-01 13:00 | disposition home or self-care (01) | DRG 689 ==
LOC: ER 07:07 → 5 SOUTH 10:15
PROVIDERS: ADMIT Family Medicine; ATTEND Family Medicine
DX: N39.0 Urinary tract infection, site not specified (principal); K85.20 Alcohol induced acute pancreatitis without necrosis or infection; K86.1 Other chronic pancreatitis; K21.9 Gastro-esophageal reflux disease without esophagitis; B96.20 Unspecified Escherichia coli [E. coli] as the cause of diseases classified elsewhere; E55.9 Vitamin D deficiency, unspecified; F17.200 Nicotine dependence, unspecified, uncomplicated; K59.00 Constipation, unspecified; Z90.49 Acquired absence of other specified parts of digestive tract; Z98.51 Tubal ligation status
CPT/HCPCS: 36415; 74177; 80053; 80061; 80307; 81001; 82150; 83690; 85025; 87086; 87186; 94640; 94760; 96361; 96374; 96375; J0696; J2405; J3010; J7030; J7620; Q9967; 99285-25; G0378

== ENCOUNTER → 2019-04-14 | Day surgery (SDC) | payer OTHER ==
[~2019-04-14] MED LIST changes: +ASPI-630 PO; +HYDROmorphone 2 MG/ML VIAL IV PRN; +IV RINGERS,LACTATED 1000ML 1,000 ML IV SCH; +LACT1CAP19 PO; +LIDOCAINE 1% PF 2 ML VIAL. ID PRN; +LIDOCAINE 2% PF 5 ML VIAL. ONE; +MORPHINE SULFATE 2 MG/ML VIAL. IV PRN; +ONDANSETRON PF 4 MG/2 ML VIAL. IV PRN; +OXYC1TAB15 PO; +POLY17PO28 PO; +PROCHLORPERAZINE 10 MG/2 ML VIAL. IV PRN; +PROPOFOL 40 ML IV ONE; +fentaNYL PF VIAL 100 MCG/2 ML VIAL IV PRN
[2019-04-14 08:56] VITALS: BP 151/78
--- NOTE | 2019-04-15 15:07 | PATHOLOGY ---
[facility] Accession Number: [id number] . 01 Material submitted: . rectum - RECTAL POLYPS . 01 Clinical history: . GERD, CRCS . 02 Diagnosis: "Rectal polyps", biopsy: - Hyperplastic polyp. (CLW:talita; 04/15/2019) MBR 04/15/2019 1010 Local . 02 Electronically signed: . Mae Arciniega MD, Pathologist NPI- [id number] . 01 Gross description: . The specimen is received in formalin, labeled "Tuan Palaciosz, rectal polyps", are four irregular fragments of pond soft tissue measuring 0.7 x 0.5 x 0.2 cm in aggregate. The largest polyp is inked black and bisected. Entirely submitted in A1. ([facility]; 04/14/2019) [facility] 04/14/2019 2109 Local . 02 Pathologist provided ICD-10: K62.1 . 02 CPT . 525481 Specimen Comment: A courtesy copy of this report has been sent to Specimen Comment: [phone], . Specimen Comment: Report sent to / DR PALACIOS Performed at: 01 [facility] [address] [facility] [address], [place] [id number] MD Rafiq Orr MD Phone: [phone] Performed at: 02 [facility] [address] [place], [place] [id number] MD Taran Brown MD Phone: [phone]
== END ==
LOC: ENDOS 06:50
PROVIDERS: ATTEND Internal Medicine Gastroenterology
DX: R11.0 Nausea (principal); K62.1 Rectal polyp; K29.50 Unspecified chronic gastritis without bleeding; K64.0 First degree hemorrhoids; K85.90 Acute pancreatitis without necrosis or infection, unspecified; F41.9 Anxiety disorder, unspecified; F15.90 Other stimulant use, unspecified, uncomplicated; F17.210 Nicotine dependence, cigarettes, uncomplicated; Z98.890 Other specified postprocedural states; Z90.49 Acquired absence of other specified parts of digestive tract; Z87.440 Personal history of urinary (tract) infections; Z87.39 Personal history of other diseases of the musculoskeletal system and connective tissue; Z72.89 Other problems related to lifestyle
CPT/HCPCS: 43235; 45385; 88305; J2001; J2704; 45380

== ENCOUNTER → 2019-08-04 | Outpatient (CLI) | payer OTHER ==
[2019-04-14 08:56] VITALS: BP 151/78
[~2019-08-04] MED LIST changes: -HYDROmorphone 2 MG/ML VIAL IV PRN; -IV RINGERS,LACTATED 1000ML 1,000 ML IV SCH; -LIDOCAINE 1% PF 2 ML VIAL. ID PRN; -LIDOCAINE 2% PF 5 ML VIAL. ONE; -MORPHINE SULFATE 2 MG/ML VIAL. IV PRN; -OMEP20CA10 PO; +OMEP20CA16 PO; -ONDANSETRON PF 4 MG/2 ML VIAL. IV PRN; -PROCHLORPERAZINE 10 MG/2 ML VIAL. IV PRN; -PROPOFOL 40 ML IV ONE; -fentaNYL PF VIAL 100 MCG/2 ML VIAL IV PRN
--- NOTE | 2019-08-04 08:53 | RAD ---
History: Routine screening. Technique: Bilateral digital mammographic routine views were obtained with 2-D and 3-D technique and utilizing CAD - computer aided detection. Comparison: 04/15/2018. Findings: Breast Tissue Density C : The breast tissue is heterogeneously dense. Scattered fibroglandular elements may obscure underlying pathology. There are no suspicious masses, microcalcifications or areas of architectural distortion. Impression: No suspicious findings. BI-RADS Category 1: Negative. Normal interval followup. Your mammogram demonstrates that you have dense breast tissue, which could hide abnormalities, and if you have other risk factors for breast cancer that have been identified, you might benefit from supplemental screening tests that may be suggested by your ordering physician. Dense breast tissue, in and of itself, is a relatively common condition. This information is not provided to cause undue concern, but rather to raise your awareness and to promote discussion with your physician regarding the presence of other risk factors, in addition to dense breast tissue. A report of your mammography results will be sent to you and your physician. You should contact your physician if you have any questions or concerns regarding this report. A mammogram does not have 100% sensitivity and therefore a negative imaging study should not delay further work up of a suspicious abnormality. The patient will receive a letter with the results in the mail. Patient information is entered into the reminder system with a target due date for the next screening mammogram. The patient will receive a reminder. "Our facility is accredited by the [employer] Mammography Program." BI-RADS 1 -- negative findings (within normal)
== END | disposition home or self-care (01) ==
LOC: MAMMO 07:38
PROVIDERS: ATTEND Family Medicine
DX: Z12.31 Encounter for screening mammogram for malignant neoplasm of breast (principal)
CPT/HCPCS: 77063; 77067

== ENCOUNTER 2019-12-15 19:16 | Emergency (ER) | payer OTHER ==
[~2019-12-15] VITALS: Ht 149.9 cm; Wt 59.1 kg
[2019-12-15 20:09] VITALS: BP 126/57
--- NOTE | 2019-12-15 20:43 | PHYS DOC ---
Past Medical History Past Medical History: Pancreatitis Additional Past Medical Histor: H. Pylori, gastritis, Vitamin D deficiency Past Surgical History: Cholecystectomy, , Tubal ligation Smoking Status: Current Every Day Smoker Alcohol Use: Rarely Drug Use: None General Adult EDM: Chief Complaint: WRIST PAIN HPI: HPI: Patient is a 64 year old female patient who presents with left wrist pain. Patient states that she was putting stuff in a car earlier today, when she twisted and had fallen on that arm has had some discomfort in her wrist since that time. States episode occurred approximately 1700 today. States she does not take any medications for the discomfort. States she is continued to have discomfort and swelling in her wrist. Denies admission discomfort, states discomfort isolated in her left forearm and wrist when she tries to move it. Denies any shoulder discomfort, denies any discomfort in back, head neck Review of Systems: Review of Systems: Constitutional: Denies fever or chills. [] Respiratory: Denies cough or shortness of breath. [] Cardiovascular: Denies chest pain or edema. [] Musculoskeletal: Denies back pain or joint pain. Complains of pain to left wrist. decreased ROM [] Integument: Denies rash. [] Heart Score: Risk Factors: Risk Factors: DM, Current or recent (<one month) smoker, HTN, HLP, family history of CAD, obesity. Risk Scores: Score 0 - 3: 2.5% MACE over next 6 weeks - Discharge Home Score 4 - 6: 20.3% MACE over next 6 weeks - Admit for Clinical Observation Score 7 - 10: 72.7% MACE over next 6 weeks - Early Invasive Strategies Allergies: Allergies: Allergies Coded Allergies Type Severity Reaction Last Updated Verified No Known Drug Allergies 04/14/19 No Physical Exam: PE: Constitutional: Well developed, well nourished, no acute distress, non-toxic appearance. [] Cardiovascular:Heart rate regular rhythm, no murmur [] Lungs & Thorax: Bilateral breath sounds clear to auscultation [] Abdomen: Bowel sounds normal, soft, no tenderness, no masses, no pulsatile masses. [] Skin: Warm, dry, no erythema, no rash. [] Back: No tenderness, no CVA tenderness. [] Extremities: No tenderness, no cyanosis, no clubbing, ROM decreased. Swelling, tenderness noted to radial aspect of distal left arm[] Neurologic: Alert and oriented X 3, normal motor function, normal sensory function, no focal deficits noted. [] Psychologic: Affect normal, judgement normal, mood normal. [] Current Patient Data: Vital Signs: Vital Signs Date Time Temp Pulse Resp B/P (MAP) Pulse Ox O2 Delivery O2 Flow Rate FiO2 12/15/19 20:09 98.1 54 12 126/57 (80) 100 Room Air 98.1 EKG: EKG: [] Radiology/Procedures: Radiology/Procedures: COMPARISON: None. FINDINGS: 3 views of the left wrist are obtained. There is a mildly displaced fracture of the distal radial metaphysis and ulnar styloid. There is soft tissue swelling. IMPRESSION: Mildly displaced fractures of the distal radial metaphysis and ulnar styloid. Electronically signed by: Leandra Rayo MD (12/15/2019 8:51 PM) [facility] [] Course & Med Decision Making: Course & Med Decision Making Pertinent Labs and Imaging studies reviewed. (See chart for details) [Will apply splint, provide pain medications, follow up with Orthopedics. Patient in agreement with plan with no further questions or concerns. ] Splint applied, brisk capillary refill, sensation intact to distal digits. Arm placed in sling. Patient with no further questions or concerns Dragon Disclaimer: Dragon Disclaimer: This electronic medical record was generated, in whole or in part, using a voice recognition dictation system. Departure Departure Impression: Primary Impression: Left radial fracture Qualified Codes: S52.502A - Unspecified fracture of the lower end of left radius, initial encounter for closed fracture Disposition: 01 HOME, SELF-CARE Condition: STABLE Referrals: Elizabeth BUCHANAN MD (PCP) ARON HURT MD Patient Instructions: Wrist Fracture Additional Instructions: As discussed, keep your arm elevated and apply ice for the discomfort. Follow up with Orthopedics, call them first thing tomorrow for Dr Hurt office. Take the pain medications as prescribed for discomfort. Keep the splint dry Scripts Hydrocodone/Apap 5-325 (NORCO 5-325 TABLET) 1 Each Tablet 1-2 TAB PO Q4-6HRS PRN for PAIN, #15 TAB Prov: LEO JULIEN APRN 12/15/19 Justicifation of Admission Dx: Justifications for Admission: Justification of Admission Dx: N/A LEO JULIEN APRN Dec 15, 2019 20:43
--- NOTE | 2019-12-15 20:54 | RAD ---
EXAM: Left wrist, 3 views. HISTORY: Pain. COMPARISON: None. FINDINGS: 3 views of the left wrist are obtained. There is a mildly displaced fracture of the distal radial metaphysis and ulnar styloid. There is soft tissue swelling. IMPRESSION: Mildly displaced fractures of the distal radial metaphysis and ulnar styloid. Electronically signed by: Leandra Rayo MD (12/15/2019 8:51 PM) [facility]
[2019-12-15] MEDS ORDERED: HYDR-3164 PO ×2 (21:11→21:12)
[2019-12-15] MEDS ORDERED: HYDROcodone/APAP 5/325MG 1 TAB TABLET PO ONE (21:30)
== END 2019-12-15 21:23 | disposition home or self-care (01) ==
LOC: ER 19:16
DX: S52.502A Unspecified fracture of the lower end of left radius, initial encounter for closed fracture (principal); F17.200 Nicotine dependence, unspecified, uncomplicated; W18.39XA Other fall on same level, initial encounter; Y93.89 Activity, other specified; Y92.89 Other specified places as the place of occurrence of the external cause; Y99.8 Other external cause status
CPT/HCPCS: 29125; 73110; 99283

== ENCOUNTER → 2020-04-03 | Outpatient (CLI) | payer OTHER ==
[~2020-04-03] MED LIST changes: +CALC-627 PO; -CALC1TAB75 PO; +HYDR-3164 PO; +ISOFLURANE > 120 MINUTES. IH ONE; +LIDOCAINE 2% PF 5 ML VIAL. ONE; +PROPOFOL 10 MG/ML (20ML) VIAL. IV ONE; +ROCURONIUM 50 MG/5 ML VIAL. ONE; +SUCCINYLCHOLINE 200 MG/10 ML VIAL. ONE; +fentaNYL PF VIAL 100 MCG/2 ML VIAL ONE
== END ==
LOC: MRI 09:41
PROVIDERS: ATTEND Physician Assistant
DX: M25.332 Other instability, left wrist (principal); Z53.29 Procedure and treatment not carried out because of patient's decision for other reasons
CPT/HCPCS: J0330; J2704; J3010

== ENCOUNTER → 2020-04-12 | Outpatient (CLI) | payer OTHER ==
[~2020-04-12] MED LIST changes: -ISOFLURANE > 120 MINUTES. IH ONE; -LIDOCAINE 2% PF 5 ML VIAL. ONE; -PROPOFOL 10 MG/ML (20ML) VIAL. IV ONE; -ROCURONIUM 50 MG/5 ML VIAL. ONE; -SUCCINYLCHOLINE 200 MG/10 ML VIAL. ONE; -fentaNYL PF VIAL 100 MCG/2 ML VIAL ONE
--- NOTE | 2020-04-12 13:44 | RAD ---
EXAM: MRI Left WRIST DATE: 04/12/2020 10:30 AM CLINICAL HISTORY: Left wrist pain, fracture, SCAPHOLUNATE DISLOCATION OF LEFT WRIST COMPARISON: Radiographs 03/27/2020, 02/14/2020, 01/13/2020, 12/27/2019, 12/15/2019. TECHNIQUE: Multiplanar, multisequence MR imaging of the left wrist was performed without IV contrast. FINDINGS: This examination is significantly limited by motion artifact and repeat sequences were unable to be obtained given patient discomfort. Healing distal radial fracture is seen, transverse through the metaphysis with intra-articular extension into the scaphoid and lunate fossa. Ulnar styloid avulsion fracture is also seen. No definite additional fracture is seen. Small distal radial ulnar joint effusion. Full-thickness perforating type tear is seen at the radial side of the TFC disc foveal attachment appears intact. Styloid attachment is not well delineated, obscured by motion artifact. Scapholunate interval measures 5 mm. No discrete scapholunate ligament tear is identified although there is mild increased signal within the scapholunate ligament.. The lunotriquetral ligament is intact.. Visualized flexor and extensor tendons are intact, normal in signal and morphology without tenosynovitis. Median and ulnar nerves are normal in signal and morphology. No abnormal bowing of the flexor retinaculum. IMPRESSION: 1. Comminuted distal radial fracture as described above, likely progressively healing. Ulnar styloid avulsion fracture with nearly inconspicuous fracture plane. 2. Widening of the scapholunate interval with scapholunate ligament sprain, without discrete full-thickness tear 3. Full-thickness radial sided perforating type tear of the TFC disc. Small distal radial ulnar joint effusion. Electronically signed by: Walker Durán MD (04/12/2020 1:41 PM) [place] [id number]
== END ==
LOC: MRI 09:13
PROVIDERS: ATTEND Physician Assistant
DX: S52.502A Unspecified fracture of the lower end of left radius, initial encounter for closed fracture (principal); S63.592A Other specified sprain of left wrist, initial encounter; M25.442 Effusion, left hand; X58.XXXA Exposure to other specified factors, initial encounter; Y93.89 Activity, other specified; Y92.89 Other specified places as the place of occurrence of the external cause; Y99.8 Other external cause status
CPT/HCPCS: 73221

== ENCOUNTER → 2020-04-12 | Outpatient (CLI) | payer OTHER ==
[2020-04-12 09:39] LABS: BASO # 0.2 x10^3/uL (0.0-0.2); BASO % 3 % (0-3); EOS # 0.1 x10^3/uL (0.0-0.7); EOS % 2 % (0-3); HEMATOCRIT 41.9 % (36.0-47.0); HEMOGLOBIN 13.8 g/dL (12.0-15.5); LYMPH % 43 % (24-48); MEAN CORPUSCULAR HEMOGLOBIN 30 pg (25-35); MEAN CORPUSCULAR HGB CONC 33 g/dL (31-37); MEAN CORPUSCULAR VOLUME 89 fL (79-100); MONO # 0.5 x10^3/uL (0.0-1.1); MONO % 8 % (0-9); NEUT # 3.2 x10^3/uL (1.8-7.7); NEUT % 45 % (31-73); PLATELET COUNT 545 x10^3/uL (140-400); RED BLOOD COUNT 4.69 x10^6/uL (3.50-5.40); RED CELL DISTRIBUTION WIDTH 14.7 % (11.5-14.5)
[2020-04-12 09:41] LABS: ALBUMIN 3.7 g/dL (3.4-5.0); CALCIUM 9.4 mg/dL (8.5-10.1); CREATININE 0.8 mg/dL (0.6-1.0); GFR 87.7; TOTAL BILIRUBIN 0.2 mg/dL (0.2-1.0); TOTAL PROTEIN 7.4 g/dL (6.4-8.2)
--- NOTE | 2020-04-12 13:45 | RAD ---
Exam:Left ribs Date: 04/12/2020 12:00 AM Comparison: No prior Indication: INTERCOSTAL PAIN Findings/ Impression: AP, Oblique and Spot images of the left ribs are negative for acute displaced rib fracture. Negative focal pleural elevation. Symmetrical intercostal spacing. It is of note that an acute non-displaced rib fracture can be in-apparent on initial post-trauma imaging. Electronically signed by: Walker Durán MD (04/12/2020 1:42 PM) [id number]
== END ==
LOC: LAB 09:02
PROVIDERS: ATTEND Family Medicine
DX: R53.83 Other fatigue (principal); R07.82 Intercostal pain
CPT/HCPCS: 36415; 71100; 80053; 84443; 85025

== ENCOUNTER → 2020-07-13 | Outpatient (CLI) | payer OTHER ==
[~2020-07-13] MED LIST changes: -POLY17PO28 PO; +POLY17PO52 PO
[2020-07-13 10:22] LABS: ALBUMIN 3.7 g/dL (3.4-5.0); ALBUMIN/GLOBULIN RATIO 0.9 (1.0-1.7); CALCIUM 9.7 mg/dL (8.5-10.1); CREATININE 0.9 mg/dL (0.6-1.0); GFR 76.3; TOTAL BILIRUBIN 0.5 mg/dL (0.2-1.0); TOTAL PROTEIN 7.9 g/dL (6.4-8.2)
== END ==
LOC: LAB 06:46
PROVIDERS: ATTEND Family Medicine
DX: R10.84 Generalized abdominal pain (principal)
CPT/HCPCS: 36415; 80053; 82150; 83690

== ENCOUNTER → 2020-11-21 | Outpatient (CLI) | payer OTHER ==
[2020-11-21 17:14] LABS: BASO % 0 % (0-3); EOS # 0.2 x10^3/uL (0.0-0.7); EOS % 3 % (0-3); HEMATOCRIT 41.1 % (36.0-47.0); HEMOGLOBIN 13.8 g/dL (12.0-15.5); LYMPH # 3.8 x10^3/uL (1.0-4.8); LYMPH % 52 % (24-48); MEAN CORPUSCULAR HEMOGLOBIN 30 pg (25-35); MEAN CORPUSCULAR HGB CONC 34 g/dL (31-37); MEAN CORPUSCULAR VOLUME 89 fL (79-100); MONO # 0.5 x10^3/uL (0.0-1.1); MONO % 7 % (0-9); NEUT # 2.7 x10^3/uL (1.8-7.7); NEUT % 38 % (31-73); PLATELET COUNT 494 x10^3/uL (140-400); RED BLOOD COUNT 4.61 x10^6/uL (3.50-5.40); RED CELL DISTRIBUTION WIDTH 13.8 % (11.5-14.5); WHITE BLOOD COUNT 7.2 x10^3/uL (4.0-11.0)
[2020-11-21 17:22] LABS: ALBUMIN 4.1 g/dL (3.4-5.0); ALBUMIN/GLOBULIN RATIO 1.1 (1.0-1.7); CALCIUM 9.2 mg/dL (8.5-10.1); CREATININE 0.8 mg/dL (0.6-1.0); GFR 87.4; POTASSIUM 3.7 mmol/L (3.5-5.1); TOTAL BILIRUBIN 0.2 mg/dL (0.2-1.0); TOTAL PROTEIN 7.9 g/dL (6.4-8.2)
== END ==
LOC: LAB 16:37
PROVIDERS: ATTEND Family Medicine
DX: R11.0 Nausea (principal); R10.9 Unspecified abdominal pain
CPT/HCPCS: 36415; 80053; 83690; 85025

== ENCOUNTER → 2021-03-20 | Outpatient (CLI) | payer OTHER ==
--- NOTE | 2021-03-20 14:00 | RAD ---
AP and Lateral Views of the Chest 03/20/2021 10:14 AM Indication: Reason: COSTOCHONDRITIS. / Spl. Instructions: / History: Comparison: Chest radiograph April 15, 2018 Findings: Heart size is normal. No pneumothorax or pleural effusion is seen. Mild interstitial coarse rigo is unchanged. No new focal infiltrate is identified. No acute osseous changes are seen. Calcifie d suprahilar lymph node noted on the right, unchanged. IMPRESSION: No evidence of acute cardiopulmonary process or acute change from prior study Electronically signed by: Donald Spain MD (03/20/2021 10:27 AM) [id number]
== END ==
LOC: RAD 09:47
PROVIDERS: ATTEND Family Medicine
DX: M94.0 Chondrocostal junction syndrome [Tietze] (principal)
CPT/HCPCS: 71046

== ENCOUNTER 2021-08-30 10:22 | Emergency (ER) | payer OTHER ==
[~2021-08-30] VITALS: Ht 149.9 cm; Wt 47.7 kg
[2021-08-30 10:26] VITALS: BP 135/65
[2021-08-30] MEDS ORDERED: CYCL10TA19 PO (10:51)
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
== END 2021-08-30 10:56 | disposition home or self-care (01) ==
LOC: ER 10:22
DX: S16.1XXA Strain of muscle, fascia and tendon at neck level, initial encounter (principal); S46.912A Strain of unspecified muscle, fascia and tendon at shoulder and upper arm level, left arm, initial encounter; S39.012A Strain of muscle, fascia and tendon of lower back, initial encounter; F17.200 Nicotine dependence, unspecified, uncomplicated; V89.2XXA Person injured in unspecified motor-vehicle accident, traffic, initial encounter; Y93.89 Activity, other specified; Y92.89 Other specified places as the place of occurrence of the external cause; Y99.8 Other external cause status
CPT/HCPCS: 99283